=== PATIENT | female | born 1925 | race Caucasian/White ===

== ENCOUNTER 2016-10-27 19:48 | Inpatient (IN) ==
--- NOTE | 2016-10-27 20:12 | Emergency Department Note ---
Disposition Clinical Impression: Acute decompensated heart failure Hypotension Qualifiers: Hypotension type: idiopathic hypotension Qualified Code(s): I95.0 - Idiopathic hypotension Acute renal failure Qualifiers: Acute renal failure type: unspecified Qualified Code(s): N17.9 - Acute kidney failure, unspecified Disposition: Admitted As Inpatient Condition: Serious General Adult HPI - General Chief complaint: ED General Medical Stated complaint: lower ext edema Time Seen by Provider: 10/27/16 19:58 Nursing Notes Reviewed: Yes Vital Signs Reviewed: Yes - History of Present Illness HPI Narrative: 89-year-old female with a history of hypertension, hypothyroidism, hyperkalemia , A. fib on Pradaxa presents to the emergency department with lower extremity swelling, nausea and vomiting and generalized weakness. Patient's a poor historian and difficult to get much history from. She lives in a snf. She was recently seen at [facility] but does not think that she was admitted. She denies history of congestive heart failure. She reports just not feeling well. She has had some nausea and vomiting but no abdominal pain any time. She denies any fevers or diarrhea. She denies any chest pain. She does report some shortness of breath. Denies any headache, change in vision or focal weakness. - Related Data Home Medications Medication Instructions Recorded Confirmed Apixaban [Eliquis] 2.5 mg PO BID 03/30/16 04/01/16 Atenolol [Tenormin] 25 mg PO DAILY 03/30/16 04/01/16 Cholecalciferol (Vitamin D3) 10,000 unit PO WE 03/30/16 04/01/16 [Vitamin D3] LORazepam [Ativan] 0.5 mg PO DAILY 03/30/16 04/01/16 Levothyroxine [Synthroid] 150 mcg PO DAILY 03/30/16 04/01/16 Ropinirole HCl [Requip] 1.5 mg PO HS 03/30/16 04/01/16 Ciprofloxacin HCl [Cipro] 250 mg PO BID 04/01/16 04/01/16 Potassium Chloride [K-Tab ER] 20 meq PO DAILY 04/01/16 04/01/16 Previous Rx's Medication Instructions Recorded Furosemide [Lasix] 20 mg PO BID 30 Days 04/04/16 Allergies Allergy/AdvReac Type Severity Reaction Status Date / Time Iodinated Contrast Media - AdvReac Vomiting Verified 10/27/16 20:13 Oral and [Iodinated Contrast Media - IV Dye] All systems ED: reviewed and negative except as stated. Constitutional: Denies: fever, chills Cardiovascular: Reports: dyspnea on exertion. Denies: chest pain, syncope Respiratory: Denies: cough Gastrointestinal: Reports: vomiting. Denies: abdominal pain Genitourinary: Denies: urgency Musculoskeletal: Denies: back pain Neurological: Denies: headache, weakness, numbness Past Medical History - Past Medical History Medical history: Reports: atrial fibrillation, hypertension, thyroid disease Surgical history: Reports: cholecystectomy, hysterectomy Psychiatric history: Reports: no psych history - Social History Smoking Status: Never smoker Alcohol use: Reports: none Drug use: Reports: none Physical Exam General: Appears well, she is oriented, talkative and appropriate Cardiovascular: Irregular but rate is controlled, S1, S2. No murmurs, rubs or gallops. Respiratory: Breath sounds clear bilaterally. No wheezing, rales or rhonchi. No resp distress Abdomen: Soft, nontender. No guarding, rebound or rigidity. Normal bowel sounds throughout. Negative Thomas's. No palpable organomegaly Eyes: Pupils equally round and reactive to light, extraocular muscles intact, conjunctiva clear HENT: Normocephalic, no signs of head injury. No oral mucosal lesions. Moist mucous membranes Neuro: Cranial nerves intact. No motor or sensory deficit. Musculoskeletal: Bilateral lower extremity edema from the knees down. This is symmetric. There is no calf tenderness. There is some chronic changes of the skin but no signs of infection. Normal capillary refill. Skin: No lesions. No diaphoresis. Normal turgor. Normal color Psych: Appropriate Course Course Narrative: 89-year-old female with a history of hypertension, hyperlipidemia, atrial fibrillation presents to the emergency department with lower extremity swelling and generalized weakness. Family states she has become so weak she cannot even get around the house. She was recently seen by her doctor who has been increasing her Lasix due to the lower extremity swelling. Her EKG shows atrial fibrillation with no acute ischemic changes. Troponin is not elevated. Her chest x-ray shows bilateral pulmonary vascular congestion and clinically she appears to be in heart failure. Her BNP is quite elevated as well. We did do a CT scan of her abdomen which showed a large cystic lesion in the liver. Her liver enzymes are not elevated. Patient has been hypotensive asymptomatically since she has been here. She was given gentle fluid hydration without much improvement. She had a echocardiogram performed less than a year ago which showed an EF of 60%. My concern is that she is retaining more fluid and acutely having decompensated heart failure. She is also in renal failure with a creatinine of 3 with no history of this. Vital Signs Temperature 97.1 F L 10/27/16 19:58 Pulse Rate 88 10/27/16 19:58 Respiratory Rate 20 10/27/16 19:58 Blood Pressure 116/96 10/27/16 19:58 O2 Sat by Pulse Oximetry 99 10/27/16 19:58 Temperature 97.1 F L 10/27/16 19:58 Pulse Rate 86 10/28/16 06:00 Respiratory Rate 16 10/28/16 06:00 Blood Pressure 104/46 10/28/16 06:00 O2 Sat by Pulse Oximetry 94 L 10/28/16 06:00 Oxygen Delivery Oxygen Delivery Room Air Medical Decision Making - Lab Data Result diagrams: 10/28/16 04:40 10/28/16 04:40 Lab Results 10/27/16 10/27/16 10/27/16 Range/Units 20:35 20:35 20:35 WBC 5.3 (4.3-11.1) K/mcL RBC 4.11 (3.82-4.97) M/mcL Hgb 12.2 (11.5-15.4) g/dL Hct 36.1 (35.3-44.9) % MCV 87.8 (83.0-100.0) fL MCH 29.7 (28.0-33.3) pg MCHC 33.8 (31.6-35.5) g/dL RDW 16.9 H (11.5-14.5) % Plt Count 90 L (140-400) K/mcL MPV 13.1 H (9.4-12.4) fL Immature Gran % 0.4 (0-4) % Seg Neutrophils % 72.4 % Lymphocytes % 17.4 % Monocytes % 8.1 % Eosinophils % 1.5 % Basophils % 0.2 % Neutrophils # 3.8 (1.6-8.9) K/mcL Lymphocytes # 0.9 (0.6-4.6) K/mcL Monocytes # 0.4 (0.0-1.3) K/mcL Eosinophils # 0.1 (0.0-0.6) K/mcL Basophils # 0.0 (0.0-0.2) K/mcL Nucleated RBCs/100 WBC 1.1 H (0) /100 WBC D-Dimer (0-500) ng/mLFEU Sodium (136-145) mEq/L Potassium (3.5-4.5) mEq/L Chloride (98-109) mEq/L Carbon Dioxide (19-29) mEq/L BUN (7-20) mg/dL Creatinine (0.57-1.11) mg/dL Est GFR ( Amer) (> 60) Est GFR (Non-Af Amer) (> 60) BUN/Creatinine Ratio (6-26) Glucose (70-99) mg/dL Calculated Osmolality (280-300) Calcium (8.6-10.8) mg/dL Total Bilirubin 0.6 (0.2-1.2) mg/dL Direct Bilirubin 0.4 (0.0-0.5) mg/dL Indirect Bilirubin 0.2 (0.0-1.2) mg/dL AST 66 H (5-34) Units/L ALT 53 (0-55) Units/L Alkaline Phosphatase 162 H (38-126) Units/L Troponin I (0-0.03) ng/mL B-Natriuretic Peptide 684 H (0-100) pg/mL Serum Total Protein 5.6 L (6.0-8.3) g/dL Albumin 2.0 L (3.5-5.0) g/dL Globulin 3.6 H (2.4-3.5) g/dL Albumin/Globulin Ratio 0.6 L (1.1-2.2) Lipase 168 H (8-78) Units/L Urine Color (Yellow) Urine Clarity (Clear) Urine pH (5.0-8.0) pH Units Ur Specific Hurst (1.010-1.025) Urine Protein (Neg-Trace) mg/dL Urine Glucose (UA) (Normal) mg/dL Urine Ketones (Negative) mg/dL Urine Blood (Negative) Urine Nitrite (Negative) Urine Bilirubin (Negative) Urine Urobilinogen (Normal) mg/dL Ur Leukocyte Esterase (Negative) Urine Microscopic RBC (0-3) per hpf Urine Microscopic WBC (0-3) per hpf Ur Squamous Epith Cells (None-Few) per lpf Urine Bacteria (None-Few) per hpf Hyaline Casts (None-Few) per lpf Ur Culture Indicated? (NO) 10/27/16 10/27/16 10/27/16 Range/Units 20:35 20:35 20:46 WBC (4.3-11.1) K/mcL RBC (3.82-4.97) M/mcL Hgb (11.5-15.4) g/dL Hct (35.3-44.9) % MCV (83.0-100.0) fL MCH (28.0-33.3) pg MCHC (31.6-35.5) g/dL RDW (11.5-14.5) % Plt Count (140-400) K/mcL MPV (9.4-12.4) fL Immature Gran % (0-4) % Seg Neutrophils % % Lymphocytes % % Monocytes % % Eosinophils % % Basophils % % Neutrophils # (1.6-8.9) K/mcL Lymphocytes # (0.6-4.6) K/mcL Monocytes # (0.0-1.3) K/mcL Eosinophils # (0.0-0.6) K/mcL Basophils # (0.0-0.2) K/mcL Nucleated RBCs/100 WBC (0) /100 WBC D-Dimer (0-500) ng/mLFEU Sodium 136 (136-145) mEq/L Potassium 5.7 H (3.5-4.5) mEq/L Chloride 103 (98-109) mEq/L Carbon Dioxide 22 (19-29) mEq/L BUN 95 H (7-20) mg/dL Creatinine 3.15 H (0.57-1.11) mg/dL Est GFR ( Amer) 17 L (> 60) Est GFR (Non-Af Amer) 14 L (> 60) BUN/Creatinine Ratio 30 H (6-26) Glucose 69 L (70-99) mg/dL Calculated Osmolality 310 H (280-300) Calcium 8.8 (8.6-10.8) mg/dL Total Bilirubin (0.2-1.2) mg/dL Direct Bilirubin (0.0-0.5) mg/dL Indirect Bilirubin (0.0-1.2) mg/dL AST (5-34) Units/L ALT (0-55) Units/L Alkaline Phosphatase (38-126) Units/L Troponin I 0.00 (0-0.03) ng/mL B-Natriuretic Peptide (0-100) pg/mL Serum Total Protein (6.0-8.3) g/dL Albumin (3.5-5.0) g/dL Globulin (2.4-3.5) g/dL Albumin/Globulin Ratio (1.1-2.2) Lipase (8-78) Units/L Urine Color Yellow (Yellow) Urine Clarity Cloudy A (Clear) Urine pH 5.0 (5.0-8.0) pH Units Ur Specific Hurst 1.012 (1.010-1.025) Urine Protein Trace (Neg-Trace) mg/dL Urine Glucose (UA) Normal (Normal) mg/dL Urine Ketones Negative (Negative) mg/dL Urine Blood Negative (Negative) Urine Nitrite Negative (Negative) Urine Bilirubin Negative (Negative) Urine Urobilinogen Normal (Normal) mg/dL Ur Leukocyte Esterase Negative (Negative) Urine Microscopic RBC 3-5 H (0-3) per hpf Urine Microscopic WBC 3-5 H (0-3) per hpf Ur Squamous Epith Cells Many H (None-Few) per lpf Urine Bacteria None Seen (None-Few) per hpf Hyaline Casts None Seen (None-Few) per lpf Ur Culture Indicated? NO (NO) 10/28/16 Range/Units 01:41 WBC (4.3-11.1) K/mcL RBC (3.82-4.97) M/mcL Hgb (11.5-15.4) g/dL Hct (35.3-44.9) % MCV (83.0-100.0) fL MCH (28.0-33.3) pg MCHC (31.6-35.5) g/dL RDW (11.5-14.5) % Plt Count (140-400) K/mcL MPV (9.4-12.4) fL Immature Gran % (0-4) % Seg Neutrophils % % Lymphocytes % % Monocytes % % Eosinophils % % Basophils % % Neutrophils # (1.6-8.9) K/mcL Lymphocytes # (0.6-4.6) K/mcL Monocytes # (0.0-1.3) K/mcL Eosinophils # (0.0-0.6) K/mcL Basophils # (0.0-0.2) K/mcL Nucleated RBCs/100 WBC (0) /100 WBC D-Dimer 226 (0-500) ng/mLFEU Sodium (136-145) mEq/L Potassium (3.5-4.5) mEq/L Chloride (98-109) mEq/L Carbon Dioxide (19-29) mEq/L BUN (7-20) mg/dL Creatinine (0.57-1.11) mg/dL Est GFR ( Amer) (> 60) Est GFR (Non-Af Amer) (> 60) BUN/Creatinine Ratio (6-26) Glucose (70-99) mg/dL Calculated Osmolality (280-300) Calcium (8.6-10.8) mg/dL Total Bilirubin (0.2-1.2) mg/dL Direct Bilirubin (0.0-0.5) mg/dL Indirect Bilirubin (0.0-1.2) mg/dL AST (5-34) Units/L ALT (0-55) Units/L Alkaline Phosphatase (38-126) Units/L Troponin I (0-0.03) ng/mL B-Natriuretic Peptide (0-100) pg/mL Serum Total Protein (6.0-8.3) g/dL Albumin (3.5-5.0) g/dL Globulin (2.4-3.5) g/dL Albumin/Globulin Ratio (1.1-2.2) Lipase (8-78) Units/L Urine Color (Yellow) Urine Clarity (Clear) Urine pH (5.0-8.0) pH Units Ur Specific Hurst (1.010-1.025) Urine Protein (Neg-Trace) mg/dL Urine Glucose (UA) (Normal) mg/dL Urine Ketones (Negative) mg/dL Urine Blood (Negative) Urine Nitrite (Negative) Urine Bilirubin (Negative) Urine Urobilinogen (Normal) mg/dL Ur Leukocyte Esterase (Negative) Urine Microscopic RBC (0-3) per hpf Urine Microscopic WBC (0-3) per hpf Ur Squamous Epith Cells (None-Few) per lpf Urine Bacteria (None-Few) per hpf Hyaline Casts (None-Few) per lpf Ur Culture Indicated? (NO) Critical Care Time Critical Care Time: Yes Total Critical Care Time: 35 Attestation: Hypotension, iv fluid bolus recessitation required; Attestation Statement - Attestation Attestation: Dr Cantor note: Pt seen in conjunction w/ Resident Dr Binh Marte; Please see his charting for complete documentation; I agree w/ pt's treatment and disposition and spent face to face time with the pt; patient has no chest pain or abdominal pain at the time of admission. She was placed on Lasix and a fluid restriction orally. Her kidney function has rapidly deteriorated along with her dehydration which is obvious from her lab work. Additionally now wrinkly in her lower extremities is clinically indicative of recent fluid loss. Blood pressures in the rise in the 70s and when rechecked was 87 systolic. She is not symptomatic. She has only had 1 liter of fluids in the first 4 hours and her ER stay. Additional fluids are indicated for her obvious dehydration and additional intervention will be dictated by her response to additional fluids. Afebrile, clinically her BP is not from bactermia/infection @ this time; Cystic structure noted on her CT scan as well. Patient's had a gradual deterioration in her general medical condition over the last many weeks. [id number] and son at bedside are aware of her poor prognosis and complicated situation at this time. Admitted to the hospital in fair condition. I , despite above charting, and much less suspicious for "acute decompensated heart failure" and would recommend aggresive fluid infusion over the next few hours and guage symptoms/further treatment based on her response; pt present prior to admission/waiting for admission bed for many hours and has not worsened; obvious/known very significant rise in her uremia over just a short period of days along w/ fluid restriction and aggresive lasix treatment;
[2016-10-27 20:51] LABS: Basophils % 0.2 %; Eosinophils # 0.1 K/mcL (0.0-0.6); Eosinophils % 1.5 %; Hematocrit 36.1 % (35.3-44.9); Hemoglobin 12.2 g/dL (11.5-15.4); Immature Granulocytes % 0.4 % (0-4); Lymphocytes # 0.9 K/mcL (0.6-4.6); Lymphocytes % 17.4 %; Mean Corpuscular HGB Conc 33.8 g/dL (31.6-35.5); Mean Corpuscular Hemoglobin 29.7 pg (28.0-33.3); Mean Corpuscular Volume 87.8 fL (83.0-100.0); Mean Platelet Volume 13.1 fL (9.4-12.4); Monocytes # 0.4 K/mcL (0.0-1.3); Monocytes % 8.1 %; Neutrophils # 3.8 K/mcL (1.6-8.9); Nucleated Red Blood Cells 1.1 /100 WBC (0); Red Blood Count 4.11 M/mcL (3.82-4.97); Red Cell Distribution Width 16.9 % (11.5-14.5); Segmented Neutrophils % 72.4 %
[2016-10-27 20:53] LABS: Platelet Count 90 K/mcL (140-400)
[2016-10-27 20:56] LABS: Bilirubin,Urine Negative (Negative); Blood,Urine Negative (Negative); Clarity,Urine Cloudy (Clear); Color,Urine Yellow (Yellow); Glucose,Urine (UA) Normal (Normal); Ketones,Urine Negative (Negative); Leukocyte Esterase,Urine Negative (Negative); Nitrite,Urine Negative (Negative); Protein,Urine Trace mg/dL (Neg-Trace); Specific Gravity,Urine 1.012 (1.010-1.025); Urobilinogen,Urine Normal (Normal)
[2016-10-27 20:58] LABS: Bacteria,Urine None Seen per hpf (None-Few); Hyaline Casts,Urine None Seen per lpf (None-Few); Squamous Epithelial Cell,Urine Many per lpf (None-Few)
[2016-10-27 21:00] LABS: Calcium 8.8 mg/dL (8.6-10.8); Potassium 5.7 mEq/L (3.5-4.5)
[2016-10-27 21:03] LABS: Albumin/Globulin Ratio 0.6 (1.1-2.2); Bilirubin,Direct 0.4 mg/dL (0.0-0.5); Bilirubin,Indirect 0.2 mg/dL (0.0-1.2); Bilirubin,Total 0.6 mg/dL (0.2-1.2); Globulin 3.6 g/dL (2.4-3.5); Total Protein 5.6 g/dL (6.0-8.3)
[2016-10-27] MEDS ORDERED: 0.9 % Sodium Chloride 1,000 ML IVC ONE (22:57)
[2016-10-27] MEDS ORDERED: 0.9 % Sodium Chloride 1,000 ML IV ONE (23:58)
[2016-10-28] MEDS ORDERED: Naloxone 0.4 MG/ML INJ IVP PRN (02:48)
[2016-10-28] MEDS ORDERED: 0.9 % Sodium Chloride 500 ML IVC ONE ×2 (02:51→02:52)
--- NOTE | 2016-10-28 02:53 | Internal Med History&Physical ---
Date of Encounter: 10/28/16 Time of Encounter: 00:30 Assessment and Plan (1) Hypotension Current visit: Yes Status: Acute Etiology is uncertain at this time. Volume status is difficult to assess in this patient. Could be cardiogenic versus secondary to volume depletion versus infection/sepsis. Pt was given slow IV fluid infusion in the ER, without significant improvement of the BP. Quick bedside ultrasound scan in the ER did not demonstrate pericardial effusion. IVC is not collapsed. CXR reported no infiltrate. UA is negative. Obtain blood cultures, lactate, CRP. Start dopamine infusion (pt had no central line placed in the ER). Emperically start vancomycin and zosyn Qualifiers: Hypotension type: idiopathic hypotension Qualified Code(s): I95.0 - Idiopathic hypotension (2) Acute renal failure Current visit: Yes Status: Acute Likely secondary to volume depletion/diuretics versus cardiogenic shock. Will obtain renal ultrasound. Nephrology consult. Qualifiers: Acute renal failure type: unspecified Qualified Code(s): N17.9 - Acute kidney failure, unspecified (3) Hyperkalemia Current visit: Yes Status: Acute Likely secondary to NIYA/ARF. Treat with calcium gluconate; sodium bicarbonate and kayexalate. Monitor renal function. (4) Liver lesion Current visit: Yes Status: Acute 6.3 cm near fluid density lesion centered in the caudate lobe of the liver, most likely cyst. Will obtain ultrasound scan of the liver to evaluate this further (5) Diverticulosis Current visit: Yes Status: Chronic Qualifiers: Diverticulosis site: diverticulosis of large intestine Diverticulosis bleeding: diverticulosis without bleeding Qualified Code(s): K57.30 - Diverticulosis of large intestine without perforation or abscess without bleeding (6) Constipation Current visit: Yes Status: Acute Will treat with laxatives Qualifiers: Constipation type: unspecified constipation type Qualified Code(s): K59.00 - Constipation, unspecified (7) Pleural effusion Current visit: Yes Status: Acute (8) Anasarca Current visit: Yes Status: Acute Possibly due to combination of CHF and hypoalbuminemia. (9) Atrial fibrillation Current visit: Yes Status: Chronic Rate controlled. On pradaxa. Monitor CBC Qualifiers: Atrial fibrillation type: chronic Qualified Code(s): I48.2 - Chronic atrial fibrillation (10) Hypothyroidism Current visit: Yes Status: Chronic Continue Synthroid. Will check TSH level. Qualifiers: Hypothyroidism type: unspecified Qualified Code(s): E03.9 - Hypothyroidism , unspecified (11) Hypoalbuminemia Current visit: Yes Status: Acute (12) Elevated lipase Current visit: Yes Status: Acute CT scan shows no evidence of pancreatitis (13) DVT prophylaxis Current visit: Yes Status: Acute Pt is on pradaxa Internal Medicine - H&P: HPI Admitted From: Emergency Dept Plans for Post Hospital Care: Transfer Custodial Facility History of present illness: Ms. Linton is a 89 year old female with a history of Atrial fibrillation - examination with apixaban, hypertension, hypothyroidism was apparently sent from the longterm with generalized weakness. Patient is not able to give many details she reports that her son thought she was not doing well and wanted her to go to the hospital. She apparently has history of congestive heart failure and dose of Lasix was increased recently. She reports that her leg swelling has gone down significantly. Reports occasional shortness of breath. Denies chest pain. No significant cough or expectoration. Denies abdominal pain dysuria, hematuria. She was evaluated in the emergency department and was noted to have acute kidney injury, hyperkalemia. She had significant hypotension. She was given IV fluids, without significant improvement in BP. She is admitted to the hospitalist for further management. Past Med Surg Social Fam HX - Past Medical History Medical history: atrial fibrillation, hypertension, thyroid disease Psychiatric history: no psych history - Past Surgical History Surgical History: cholecystectomy, hysterectomy - Social History Smoking Status: Never smoker Smokeless Tobacco Status: No Alcohol use: none Drug use: none - Family History Mother Living Status: Hx Family Cardiac Disorders: Yes Father Living Status: Hx Family Cardiac Disorders: Yes Hx Family Respiratory Disorders: Yes Internal Medicine - H&P: Meds Apixaban [Eliquis] 2.5 mg PO BID 03/30/16 [History] Atenolol [Tenormin] 25 mg PO DAILY 03/30/16 [History] Cholecalciferol (Vitamin D3) [Vitamin D3] 10,000 unit PO WE 03/30/16 [History] LORazepam [Ativan] 0.5 mg PO DAILY 03/30/16 [History] Levothyroxine [Synthroid] 150 mcg PO DAILY 03/30/16 [History] Ropinirole HCl [Requip] 1.5 mg PO HS 03/30/16 [History] Ciprofloxacin HCl [Cipro] 250 mg PO BID 04/01/16 [History] Potassium Chloride [K-Tab ER] 20 meq PO DAILY 04/01/16 [History] Furosemide [Lasix] 20 mg PO BID 30 Days 04/04/16 [Rx] Allergies Iodinated Contrast Media - Oral and [Iodinated Contrast Media - IV Dye] Adverse Reaction (Verified 10/27/16 20:13) Vomiting All Systems PM: A 10-system review of systems was performed and is negative for pertinent findings except as documented above in the HPI. - Constitutional Vitals: Temp Pulse Resp BP Pulse Ox 97.1 F L 75 20 69/37 97 10/27/16 19:58 10/28/16 01:15 10/28/16 01:56 10/28/16 01:56 10/28/16 01:15 Exam: General: Not in acute distress at the time of my evaluation HEENT: Oral mucosa is dry. No conjunctival palor or scleral icterus Neck: No obvious neck swellings Lungs: Clear to auscultation Cardiac: Irregular rhythm. No significant murmurs Abdomen: Distended, non tender. Bowel sounds present Genitourinary: No fair catheter Neurological: Alert and able to answer questions, some confusion. No gross localizing deficits Psych: Not aggressive or agitated Extremities: B/L leg edema present Skin: No generalized rash Internal Med - H&P Results - Labs CBC & Chem 7: 10/28/16 04:40 10/28/16 04:40 - EKG Data -: EKG Interpreted by Myself - EKG Data EKG comments: Atrial fibrillation, rate controlled. Low voltage complexes 10/28/16 03:46 - Impressions ITS Impressions Chest X-Ray 10/27/16 20:09 IMPRESSION: 1. Findings are suggestive of bilateral pleural effusion and partial atelectasis of the lower lobes. Underlying pneumonia is not excluded. D/ / Dario Palumbo MD / Dario Palumbo MD Interpreting Provider: Dario Palumbo MD Abdomen/Pelvis CT 10/27/16 20:28 IMPRESSION: Moderate right and small left layering pleural effusions. Passive atelectasis and partial right lower lobe collapse. 6.3 cm near fluid density lesion centered in the caudate lobe of the liver, most likely a cyst. This could be confirmed with ultrasound examination. Colonic diverticulosis. No findings of diverticulitis. Significant rectal stool burden. Anasarca. D/ / Mike Tinoco MD / Mike Tinoco MD Interpreting Provider: Mike Tinoco MD
[2016-10-28] MEDS ORDERED: Calcium Gluconate 1,000 MG in D5% in Water 100 ML IVPB ONE (02:55)
[2016-10-28] MEDS ORDERED: Piperacillin/Tazobactam 2.25 GM in D5% in Water (Mini-Bag+) 100 ML IVPB SCH (03:25)
[2016-10-28] MEDS ORDERED: Vancomycin 1,000 MG in D5% in Water 250 ML IVPB SCH (03:25)
[2016-10-28] MEDS ORDERED: Vancomycin 1,000 MG in D5% in Water 250 ML IVPB ONE (04:00)
[2016-10-28 04:58] LABS: Eosinophils % 0.7 %; Immature Granulocytes % 0.6 % (0-4); Lymphocytes # 0.8 K/mcL (0.6-4.6); Lymphocytes % 15.6 %; Mean Corpuscular HGB Conc 33.7 g/dL (31.6-35.5); Mean Corpuscular Hemoglobin 29.7 pg (28.0-33.3); Mean Corpuscular Volume 88.2 fL (83.0-100.0); Mean Platelet Volume 13.2 fL (9.4-12.4); Monocytes # 0.5 K/mcL (0.0-1.3); Monocytes % 8.4 %; Nucleated Red Blood Cells 0.6 /100 WBC (0); Segmented Neutrophils % 74.7 %
[2016-10-28 04:59] LABS: Hemoglobin 10.1 g/dL (11.5-15.4); Platelet Count 80 K/mcL (140-400)
[2016-10-28 05:19] LABS: Calcium 8.3 mg/dL (8.6-10.8); Potassium 5.2 mEq/L (3.5-4.5)
[2016-10-28] MEDS ORDERED: 0.9 % Sodium Chloride 300 ML IVC ONE (05:27)
[2016-10-28] MEDS: Piperacillin/Tazobactam 3.375 GM in D5% in Water (Mini-Bag+) 100 ML IVPB SCH ×2 (06:30→17:04)
--- NOTE | 2016-10-28 08:10 | Pulmonology Consult Note ---
<González Alvarado - Last Filed: 10/28/16 16:32> Date of Encounter: 10/28/16 Time of Encounter: 08:04 Assessment and Plan (1) Cardiorenal syndrome with renal failure Current Visit: Yes Status: Suspected Suspected cardiorenal syndrome Hypotension requiring vasopressor support with dopamine suspected to be 2/2 acute decompensated HF with anasarca and acute renal failure. CXR pulm edema vs atelectasis. CT abd/pel: Moderate right and small left layering pleural effusions with passive atelectasis and partial right lower lobe collapse. GFR 15, last admission in march 2016 GFR was >60 Scr 2.99, last admission in march 2016 was 0.66 Trop: 0.00, 0.07 Elevated trop likely 2/2 ARF Nephro consulted. Recommend gentle fluid hydration. Appreciate their recommendation. Echo pending (2) Hyperphosphatemia Current Visit: Yes Status: Acute most likely 2/2 acute renal failure gentle diuresis NS @75 ml/hr monitor phosphorus (3) Anasarca Current Visit: Yes Status: Acute Pitting in LE. Appreciated in head, abdomen as well. Albumin found to be low @2.0 PT/INR 68.3/6.0 Hepatic lesion found on abd/pelvis CT Liver U/S pending Echo pending Will start 5% albumin for intravascular support. 50gm Albumin ordered Possibly d/t liver dysfunction with associated heart failure. (4) Elevated lipase Current Visit: Yes Status: Acute Pt. continues to have nausea and vomiting Lipase of 168 Abd/pelvis CT did not reveal inflammation in or around pancreas Liver U/S pending (5) Hyperkalemia Current Visit: Yes Status: Chronic Pt. has history of hyperkalemia. Is on Potassium supplements at home. Likely worsened 2/2 ARF K+ 5.7 on admission Treated with calcium gluconate and kayexelate K+ this am was 5.2 Will continue to monitor (6) Hypoalbuminemia Current Visit: Yes Status: Acute Albumin 2.0 this am. Possibly 2/2 hepatic hypoperfusion vs large liver lesion seen on CT. Start 5% Albumin, 50gms total to be given. Liver u/s pending revealuate in AM (7) Hypotension Current Visit: Yes Status: Acute Possibly 2/2 hypovolemia Pt. history of 2-3 weeks nausea and vomiting BP on admission was 60's/50's BUN: 105, calculated osmolality 316. BUN/CR ratio: 35: suggests pre-renal cause Received 3L NS without improvement in ED. Dopamine started at 5mcg/kg. BP's now 90's/50's Continue Dopamine for pressure support Qualifiers: Hypotension type: idiopathic hypotension Qualified Code(s): I95.0 - Idiopathic hypotension (8) Liver lesion Current Visit: Yes Status: Acute 6.3cm lesion in liver. Liver u/s pending. AST/ALT/Alk Phos: 66/53/163 PT/INR: 68.3/6.0 Abdomen/Pelvis CT 10/27/16 20:28 IMPRESSION: Moderate right and small left layering pleural effusions. Passive atelectasis and partial right lower lobe collapse. 6.3 cm near fluid density lesion centered in the caudate lobe of the liver, most likely a cyst. This could be confirmed with ultrasound examination. Colonic diverticulosis. No findings of diverticulitis. Significant rectal stool burden. Anasarca. D/ / Mike Tinoco MD / Mike Tinoco MD Interpreting Provider: Mike Tinoco MD (9) Pleural effusion Current Visit: Yes Status: Acute B/L lower lobe pleural effusions seen on CXT and CT abd/pelvis Possibly 2/2 heart failure vs PNA Empiric antibiotics started: Vancomycin and Zosyn Day 1 Echo pending. Gentle fluid hydration of NS@75ml/min repeat cxr in am (10) Atrial fibrillation Current Visit: Yes Status: Chronic History of Afib anticoagulated at home on Eliquis. We are currently holding Eliquis as pt. may require invasive emergent procedures. Will anticoagulate with Heparin subq. HR is currently irregularly irregular with Rate 90-110 Will monitor rate and add rate controlling BB if HR increases dramatically Qualifiers: Atrial fibrillation type: chronic Qualified Code(s): I48.2 - Chronic atrial fibrillation (11) Hypothyroidism Current Visit: Yes Status: Chronic Stable TSH: 1.034 Home synthroid dose is 150mcg. Will convert to 50% dose for IV as patient is vomiting. Qualifiers: Hypothyroidism type: unspecified Qualified Code(s): E03.9 - Hypothyroidism , unspecified (12) DVT prophylaxis Current Visit: Yes Status: Acute Pt. takes eliquis at home Will hold for now as she may require central line or other invasive procedures will start Heparin subq 5000 units TID History of Present Illness Consult date: 10/28/16 Requesting physician: Howie Beckham Reason for consult: other (hypotension) Chief complaint: LE edema, N/V, Generalized weakness History of present illness: Ms. Linton is an 89 yo female who presented to the ED with chief complaint of generalized weakness, nausea/vomiting, and bilateral LE edema. She has a medical history significant for HTN, hypothyroid, hyperkalemia, Afib (eliquis). She lives in a fci in [place]. She states she has been feeling more tired/fatigued for the last few weeks. She feels very tired and fatigues whenever exerting herself and must sit down for a while to get her strength back. She has also been vomiting after eating her meals and taking her meds over the past 2-3 weeks. She has also noticed new onset B/L LE swelling. She has previously had LE swelling in February 2016 when she was admitted for hyponatremia. She was found to be hypotensive upon admission and placed in the ICU. She was given 3L NS and started on Dopamine 5mcg/kg for pressure support. She was also started empirically on Vanc and Zosyn in the ED from CXR which revealed possible PNA. She was also found to have hyperkalemia and treated with calcium gluconate and kayexelate as well with improvement. She denies any pain/nausea/vomiting/chest pain/sob/abd pain at this time. Past Med Surg Social Fam HX - Past Medical History Medical history: atrial fibrillation, hypertension, thyroid disease Psychiatric history: no psych history - Past Surgical History Surgical History: cholecystectomy, hysterectomy - Social History Smoking Status: Never smoker Smokeless Tobacco Status: No Alcohol use: none Drug use: none - Family History Mother Adopted: No Living Status: Age at : 79 Cause of : CVA Hx Family Cardiac Disorders: Yes Father Adopted: No Age: 85 Living Status: Cause of : atherosclerosis Hx Family Cardiac Disorders: Yes Hx Family Respiratory Disorders: Yes Medications and Allergies Apixaban [Eliquis] 2.5 mg PO BID 03/30/16 [History] Levothyroxine [Synthroid] 150 mcg PO DAILY 03/30/16 [History] Ropinirole HCl [Requip] 1.5 mg PO HS 03/30/16 [History] Potassium Chloride [K-Tab ER] 20 meq PO DAILY 04/01/16 [History] Furosemide [Lasix] 20 mg PO BID PRN 10/28/16 [History] Allergies Iodinated Contrast Media - Oral and [Iodinated Contrast Media - IV Dye] Adverse Reaction (Verified 10/27/16 20:13) Vomiting All Systems: A 10-system review of systems was performed and is negative for pertinent findings except as documented above in the HPI. - Constitutional Constitutional: as per HPI - Cardiovascular Cardiovascular: dyspnea on exertion, edema, leg edema, no chest pain, no chest pain at rest, no chest pain with activity - Respiratory Respiratory: dyspnea, dyspnea on exertion, no cough, no hemoptysis, no wheezing , no stridor, no chest congestion - Gastrointestinal Gastrointestinal: nausea, vomiting, no abdominal pain, no cramping, no diarrhea , no fecal incontinence, no hematemesis, no melena - Musculoskeletal Musculoskeletal: weakness - Neurological Neurological: restless legs, no confusion, no convulsions, no dizziness, no focal weakness, no numbness, no paresthesias, no syncope - Endocrine Endocrine: fatigue Physical Examination Vital Signs: Vital Signs, Last 4 Hours Temp Pulse Resp BP Pulse Ox 10/28/16 07:52 98 10/28/16 07:00 97.6 F 98 18 100/56 93 L 10/28/16 06:30 85 18 99/69 93 L 10/28/16 06:00 86 16 104/46 94 L 10/28/16 05:30 80 16 101/64 94 L 10/28/16 05:00 75 16 67/45 100 General appearance: lethargic ENT: oropharynx dry Effort: normal Inspection: normal Auscultation: bilateral: clear Cardiovascular: irregular rhythm (afib) Gastrointestinal: normoactive bowel sounds, tender Integumentary: normal Extremities: no cyanosis, edema, anasarca Musculoskeletal: no deformities normal mental status mood appropriate, affect normal Results - Laboratory Findings CBC and BMP: 10/28/16 04:40 10/28/16 04:40 PT/INR, D-dimer D-Dimer 226 ng/mLFEU (0-500) 10/28/16 01:41 Abnormal lab findings: Abnormal lab results RBC 3.40 M/mcL (3.82-4.97) L 10/28/16 04:40 Hgb 10.1 g/dL (11.5-15.4) L D 10/28/16 04:40 Hct 30.0 % (35.3-44.9) L 10/28/16 04:40 RDW 17.0 % (11.5-14.5) H 10/28/16 04:40 Plt Count 80 K/mcL (140-400) L 10/28/16 04:40 MPV 13.2 fL (9.4-12.4) H 10/28/16 04:40 Nucleated RBCs/100 WBC 0.6 /100 WBC (0) H 10/28/16 04:40 Potassium 5.2 mEq/L (3.5-4.5) H 10/28/16 04:40 BUN 105 mg/dL (7-20) H 10/28/16 04:40 Creatinine 2.99 mg/dL (0.57-1.11) H 10/28/16 04:40 Est GFR ( Amer) 18 (> 60) L 10/28/16 04:40 Est GFR (Non-Af Amer) 15 (> 60) L 10/28/16 04:40 BUN/Creatinine Ratio 35 (6-26) H 10/28/16 04:40 Calculated Osmolality 316 (280-300) H 10/28/16 04:40 Calcium 8.3 mg/dL (8.6-10.8) L 10/28/16 04:40 AST 66 Units/L (5-34) H 10/27/16 20:35 Alkaline Phosphatase 162 Units/L (38-126) H 10/27/16 20:35 C-Reactive Protein 21 mg/L (Less than 5) H 10/28/16 04:40 B-Natriuretic Peptide 684 pg/mL (0-100) H 10/27/16 20:35 Serum Total Protein 5.6 g/dL (6.0-8.3) L 10/27/16 20:35 Albumin 2.0 g/dL (3.5-5.0) L 10/27/16 20:35 Globulin 3.6 g/dL (2.4-3.5) H 10/27/16 20:35 Albumin/Globulin Ratio 0.6 (1.1-2.2) L 10/27/16 20:35 Lipase 168 Units/L (8-78) H 10/27/16 20:35 Urine Clarity Cloudy (Clear) A 10/27/16 20:46 Urine Microscopic RBC 3-5 per hpf (0-3) H 10/27/16 20:46 Urine Microscopic WBC 3-5 per hpf (0-3) H 10/27/16 20:46 Ur Squamous Epith Cells Many per lpf (None-Few) H 10/27/16 20:46 - Clinical Findings Intake & Output: Intake & Output 10/27/16 10/28/16 10/28/16 23:59 07:59 15:59 Intake Total 2160 / 2160 Balance 2160 / 2160 Weight 76.43 kg Consult Discharge Plan - Plan Referrals: Laurent Conrad MD [Primary Care Provider] - <Mohinder Ballesteros - Last Filed: 10/28/16 21:29> Date of Encounter: 10/28/16 All Systems: A 10-system review of systems was performed and is negative for pertinent findings except as documented above in the HPI. Physical Examination Vital Signs: Vital Signs, Last 4 Hours Temp Pulse Resp BP Pulse Ox 10/28/16 20:44 97.5 F L 10/28/16 20:00 102 18 96/63 99 10/28/16 19:00 89/42 10/28/16 18:00 101 20 89/54 96 Results - Laboratory Findings CBC and BMP: 10/28/16 04:40 10/28/16 04:40 PT/INR, D-dimer PT 68.3 Seconds (9.4-12.1) H* 10/28/16 11:30 D-Dimer 226 ng/mLFEU (0-500) 10/28/16 01:41 Abnormal lab findings: Abnormal lab results RBC 3.40 M/mcL (3.82-4.97) L 10/28/16 04:40 Hgb 10.1 g/dL (11.5-15.4) L D 10/28/16 04:40 Hct 30.0 % (35.3-44.9) L 10/28/16 04:40 RDW 17.0 % (11.5-14.5) H 10/28/16 04:40 Plt Count 80 K/mcL (140-400) L 10/28/16 04:40 MPV 13.2 fL (9.4-12.4) H 10/28/16 04:40 Nucleated RBCs/100 WBC 0.6 /100 WBC (0) H 10/28/16 04:40 PT 68.3 Seconds (9.4-12.1) H* 10/28/16 11:30 INR 6.0 H* 10/28/16 11:30 Potassium 5.2 mEq/L (3.5-4.5) H 10/28/16 04:40 BUN 105 mg/dL (7-20) H 10/28/16 04:40 Creatinine 2.99 mg/dL (0.57-1.11) H 10/28/16 04:40 Est GFR ( Amer) 18 (> 60) L 10/28/16 04:40 Est GFR (Non-Af Amer) 15 (> 60) L 10/28/16 04:40 BUN/Creatinine Ratio 35 (6-26) H 10/28/16 04:40 Calculated Osmolality 316 (280-300) H 10/28/16 04:40 Calcium 8.3 mg/dL (8.6-10.8) L 10/28/16 04:40 Phosphorus 6.7 mg/dL (2.3-4.7) H 10/28/16 04:40 AST 66 Units/L (5-34) H 10/27/16 20:35 Alkaline Phosphatase 162 Units/L (38-126) H 10/27/16 20:35 Troponin I 0.09 ng/mL (0-0.03) H* 10/28/16 17:13 C-Reactive Protein 21 mg/L (Less than 5) H 10/28/16 04:40 B-Natriuretic Peptide 684 pg/mL (0-100) H 10/27/16 20:35 Serum Total Protein 5.6 g/dL (6.0-8.3) L 10/27/16 20:35 Albumin 2.0 g/dL (3.5-5.0) L 10/27/16 20:35 Globulin 3.6 g/dL (2.4-3.5) H 10/27/16 20:35 Albumin/Globulin Ratio 0.6 (1.1-2.2) L 10/27/16 20:35 Lipase 168 Units/L (8-78) H 10/27/16 20:35 Vitamin B12 1542 pg/mL (213-816) H 10/28/16 09:10 Urine Clarity Cloudy (Clear) A 10/27/16 20:46 Urine Microscopic RBC 3-5 per hpf (0-3) H 10/27/16 20:46 Urine Microscopic WBC 3-5 per hpf (0-3) H 10/27/16 20:46 Ur Squamous Epith Cells Many per lpf (None-Few) H 10/27/16 20:46 - Clinical Findings Intake & Output: Intake & Output 10/28/16 10/28/16 10/28/16 07:59 15:59 23:59 Intake Total 2160 / 2160 640 / 640 500 / 500 Output Total 595 / 595 150 / 150 Balance 2160 / 2160 45 / 45 350 / 350 Weight 76.43 kg 80.739 kg - Attending Attestation I examined this patient and my medical decision-making was reviewed with the ELECTRIC ORGAN CHECKER/PA/Advanced Practice Nurse/Resident Physician. I agree with the documented findings, disposition and treatment plan as described except to the extent set forth below. Patient seen and examined. Labs, radiology, chart personally reviewed. 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 Cardiovascular: unstable with shock that she needs to have vasopressor (Dopamine ) I did a bedside US and I feel her atriums are dilated and she A. fib. It is not clear at this time what type of shock she has, but could be multifactorial. I feel with her IV collapsing there is evidence of intravascular volume depletion. Patient has received fluid and I hope she will not get worse. Echo has been done and will consider cardiology consultation. GI: Nutrition per dietary and GI prophylaxis per routine Heme: DVT prophylaxis per routine. Hold Eliques for now and her INR is not reliable. There is no evidence of bleeding and low dose heparin. ID: Continue antibiotics and plan to de-escalation Renal; urine out put and renal funtion reviewed. Nephrology consultation.Will give Albumen, I hope this will help her hypotension. Endorcine: blood glucose is monitored Lines: all lines checked and no evidence of infections. If patient need more vasopressor, will plan central line placement. Skin: skin care to prevent pressure ulcers per nursing routine care I spent 35 min of Critical Care time with this patient. It involved decision making of high complexity to assess, manipulate, and support vital organ system failure and/or to prevent further life threatening deterioration of the patient' s condition. The time involved in the performance of separately reportable procedures was not counted toward critical care time.
[2016-10-28 08:17] LABS: Thyroid Stimulating Hormone 1.034 mcIU/mL (0.350-4.840)
--- NOTE | 2016-10-28 08:21 | Nephrology Consult Note ---
Date of Encounter: 10/28/16 Time of Encounter: 08:19 Assessment and Plan (1) Acute renal failure Current Visit: Yes Status: Acute The patient has acute kidney injury in the setting of hypotension and a recent increase in her diuretic dose according to the medical record. Echocardiogram from last her suggested pulmonary hypertension and tricuspid regurgitation. I suspect she may require a high preload in that she became intravascularly volume depleted when her Lasix was increased. She had subsequent hypotension and acute kidney injury. Since systolic left ventricular function was normal on the echocardiogram. I would expect that she could tolerate some IV fluids and this could lead to some improvement in her hypotension as well as her acute kidney injury. Qualifiers: Acute renal failure type: unspecified Qualified Code(s): N17.9 - Acute kidney failure, unspecified (2) Pulmonary hypertension Current Visit: Yes Status: Acute (3) Atrial fibrillation Current Visit: Yes Status: Chronic Qualifiers: Atrial fibrillation type: chronic Qualified Code(s): I48.2 - Chronic atrial fibrillation History of Present Illness - History of Present Illness This is an 89-year-old female who was sent from the alf to the hospital because of complaints of weakness. Patient was noted to be hypotensive and noted to have acute kidney injury. Creatinine on admission was 3.15. This morning is 2.99. Baseline creatinine back in March 2016 was 0.61. Patient does have a history of lower extremity swelling. Previous echocardiogram done last year showed evidence of pulmonary hypertension as well as tricuspid regurgitation. Patient is a poor historian. Medical record indicates that the patient recently had her Lasix increased at the alf. And apparently her lower extremity swelling improved. Currently the patient is resting comfortably in the intensive care unit. Her oxygen saturation is normal without supplemental oxygen. She does mention that she has been experiencing exertional dyspnea. On physical exam it is obvious that she had some lower extremity swelling is improved based on the appearance of her skin she currently is requiring dopamine to maintain her blood pressure. Urinalysis shows only a trace of proteinuria. Medical record also indicates on admission her blood pressure was 67/45. Past Med Surg Social Fam HX - Past Medical History Medical history: atrial fibrillation, hypertension, thyroid disease Psychiatric history: no psych history - Past Surgical History Surgical History: cholecystectomy, hysterectomy - Social History Smoking Status: Never smoker Smokeless Tobacco Status: No Alcohol use: none Drug use: none - Family History Mother Adopted: No Living Status: Age at : 79 Cause of : CVA Hx Family Cardiac Disorders: Yes Father Adopted: No Age: 85 Living Status: Cause of : atherosclerosis Hx Family Cardiac Disorders: Yes Hx Family Respiratory Disorders: Yes Medications and Allergies Apixaban [Eliquis] 2.5 mg PO BID 03/30/16 [History] Atenolol [Tenormin] 25 mg PO DAILY 03/30/16 [History] Cholecalciferol (Vitamin D3) [Vitamin D3] 10,000 unit PO WE 03/30/16 [History] LORazepam [Ativan] 0.5 mg PO DAILY 03/30/16 [History] Levothyroxine [Synthroid] 150 mcg PO DAILY 03/30/16 [History] Ropinirole HCl [Requip] 1.5 mg PO HS 03/30/16 [History] Ciprofloxacin HCl [Cipro] 250 mg PO BID 04/01/16 [History] Potassium Chloride [K-Tab ER] 20 meq PO DAILY 04/01/16 [History] Furosemide [Lasix] 20 mg PO BID 30 Days 04/04/16 [Rx] Allergies Iodinated Contrast Media - Oral and [Iodinated Contrast Media - IV Dye] Adverse Reaction (Verified 10/27/16 20:13) Vomiting Review of Systems Constitutional: weakness Nose, mouth and throat: no dizziness, no headache(s) Cardiovascular: dyspnea on exertion, edema, irregular heart rhythm Respiratory: dyspnea, dyspnea on exertion Gastrointestinal: no abdominal pain, no change in bowel habits Musculoskeletal: no muscle weakness, no numbness Integumentary: no hirsutism, no striae Neurological: weakness Psychiatric: no depression, no difficulty concentrating Hematologic/Lymphatic: no easy bruising, no lymphadenopathy Exam - Vital Signs Vital signs: Initial Vital Signs Temp Pulse Resp BP Pulse Ox 97.1 F L 88 20 116/96 99 10/27/16 19:58 10/27/16 19:58 10/27/16 19:58 10/27/16 19:58 10/27/16 19:58 Vital Signs - Last 8 Hours Temp Pulse Resp BP Pulse Ox 10/28/16 07:52 98 10/28/16 07:00 97.6 F 98 18 100/56 93 L 10/28/16 06:30 85 18 99/69 93 L 10/28/16 06:00 86 16 104/46 94 L 10/28/16 05:30 80 16 101/64 94 L 10/28/16 05:00 75 16 67/45 100 10/28/16 04:00 60 18 71/40 100 10/28/16 03:45 62 18 67/34 99 10/28/16 03:15 70 18 68/45 100 10/28/16 02:30 73 18 89/32 100 Intake and Output 10/27/16 10/28/16 10/28/16 23:59 07:59 15:59 Intake Total 2160 / 2160 Balance 2160 / 2160 Intake: IV Fluids 2160 / 2160 0.9 % Sodium Chloride 1, 1000 / 1000 000 ML @ 500 mls/hr IV BOLUS ONE Rx#:[id number] 0.9 % Sodium Chloride 300 300 / 300 ML @ 937.5 mls/hr IVC . Q20M ONE Rx#:[id number] 0.9 % Sodium Chloride 500 500 / 500 ML @ 1875 mls/hr IVC . Q16M ONE Rx#:[id number] Calcium Gluconate 1,000 110 / 110 MG In Dextrose 5% 100 ML @ 220 mls/hr IVPB ONCE ONE Rx#:[id number] Vancocin 1,000 MG In 250 / 250 Dextrose 5% 250 ML @ 166. 667 mls/hr IVPB ONCE ONE Rx#:[id number] Other: Weight 76.43 kg Blood Glucose* 62 Patient Weight 10/28/16 23:59 Weight 76.43 kg - General Appearance Exam: The patient is resting comfortably. She is in no acute distress. She awakens easily. She is able to answer questions and she just off back to sleep. Neck is supple. Lungs sounds anteriorly. Heart irregular rate and rhythm. Abdomen shows normal bowel sounds are present now since been ameliorated tenderness. Lower extremities show some mild lower extremity swelling. Physical exam suggests that she had worsening swelling previously admitted recently has decreased based on the wrinkling of her skin. Results - Lab Results 10/28/16 04:40 10/28/16 04:40 Most recent lab results Calcium 8.3 mg/dL (8.6-10.8) L 10/28/16 04:40 Magnesium 2.0 mg/dL (1.6-2.6) 10/28/16 04:40 Consult Discharge Plan - Plan Referrals: Laurent Conrad MD [Primary Care Provider] -
[2016-10-28] MEDS: 0.9 % Sodium Chloride 1,000 ML IVC SCH ×2 (09:17→22:23)
[2016-10-28 09:32] LABS: Phosphorous 6.7 mg/dL (2.3-4.7)
[2016-10-28] MEDS ORDERED: Albumin 25% 25gram/100mL 25 GM/100 ML IV.SOLN IVC SCH (11:00)
[2016-10-28 11:28] LABS: Folate 12.6 ng/mL (7.0-31.4)
[2016-10-28] MEDS: Sennosides/Docusate Sodium TABLET PO SCH (11:39)
[2016-10-28 11:46] LABS: Prothrombin Time 68.3 Seconds (9.4-12.1)
[2016-10-28] MEDS ORDERED: Ondansetron 4 MG/2 ML VIAL IVP PRN (11:46)
--- NOTE | 2016-10-28 12:57 | Electrocardiograph Report ---
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
[2016-10-28] MEDS ORDERED: D5% in Water 1,000 ML IV PRN (15:38)
[2016-10-28] MEDS ORDERED: *HR* Dextrose 50 % in Water (Syg) 50 ML SYRINGE IVP PRN (15:38)
[2016-10-28] MEDS ORDERED: Dextrose Gel 15 GM PO PRN ×2 (15:38)
[2016-10-28] MEDS: *HR* Heparin 5,000 UNIT/ML VIAL SQ SCH ×2 (17:04→23:45)
[2016-10-29 04:40] LABS: Basophils % 0.2 %; Eosinophils % 0.2 %; Hematocrit 24.4 % (35.3-44.9); Lymphocytes # 0.9 K/mcL (0.6-4.6); Lymphocytes % 15.1 %; Mean Corpuscular Hemoglobin 29.9 pg (28.0-33.3); Mean Corpuscular Volume 87.8 fL (83.0-100.0); Mean Platelet Volume 12.8 fL (9.4-12.4); Monocytes # 0.6 K/mcL (0.0-1.3); Monocytes % 9.6 %; Nucleated Red Blood Cells 0.8 /100 WBC (0); Red Blood Count 2.78 M/mcL (3.82-4.97); Red Cell Distribution Width 16.6 % (11.5-14.5); Segmented Neutrophils % 73.9 %
[2016-10-29 04:41] LABS: Hemoglobin 8.3 g/dL (11.5-15.4); Neutrophils # 4.4 K/mcL (1.6-8.9); Platelet Count 87 K/mcL (140-400)
[2016-10-29 04:53] LABS: INR 7.2; Prothrombin Time 83.1 Seconds (9.4-12.1)
[2016-10-29 05:04] LABS: Albumin/Globulin Ratio 1.1 (1.1-2.2); Bilirubin,Total 0.8 mg/dL (0.2-1.2); Calcium 8.1 mg/dL (8.6-10.8); Globulin 2.3 g/dL (2.4-3.5); Total Protein 4.8 g/dL (6.0-8.3)
[2016-10-29 05:06] LABS: Albumin 2.5 g/dL (3.5-5.0)
[2016-10-29] MEDS: Piperacillin/Tazobactam 3.375 GM in D5% in Water (Mini-Bag+) 100 ML IVPB SCH ×2 (05:25→18:14)
[2016-10-29] MEDS ORDERED: *HR* Phytonadione 5 MG TABLET PO ONE (05:48)
[2016-10-29] MEDS ORDERED: Aminoglycoside Consult 1 EACH MC ONE (08:00)
--- NOTE | 2016-10-29 08:43 | ECHO - Doppler Report ---
Echocardiogram Name: Aracelis Linton Date of Study: 10/28/2016 Date: 1925 Ht: 62.0 in Medical Record#: [id number] Age: 89 Wt: 178.0 lb Gender: Female BSA: 1.82 Order #: [id number] Location: [facility] Room #: [facility] Reading Physician: Daniel Fournier DO, FACBhavin, GAUDENCIO THAYER Oil Boiler: Aparna Wells RDCS Ordering Physician: Alber Beckham MD Primary Physician: Laurent Conrad MD Indications: Hypotension Impressions: LVEF 65%. Normal LV chamber size, wall thickness and function. Indeterminate diastolic function. Normal right ventricular structure and function. Moderately dilated right atrium. Severe tricuspid regurgitation. Moderate pulmonary hypertension. Estimated RVSP is 46 mmHg. Left Ventricular Wall Motion: Rest Echo Findings All wall segments showed normal motion. Findings: Study Quality * Technically adequate exam. ECG Findings * Atrial fibrillation. Left Ventricle * LVEF 65%. * Normal LV chamber size, wall thickness and function. * Indeterminate diastolic function. Right Ventricle * Normal right ventricular structure and function. Left Atrium * Mildly dilated left atrium. Right Atrium * Moderately dilated right atrium. Interatrial Septum * No evidence of PFO by color Doppler. Aortic Valve * Trileaflet aortic valve. * Mildly sclerotic aortic valve leaflets. * No aortic regurgitation. * No aortic stenosis. Mitral Valve * Mild mitral annular calcification * Trace mitral regurgitation. * No mitral stenosis. Tricuspid Valve * Normal tricuspid valve structure. * Severe tricuspid regurgitation. * Moderate pulmonary hypertension. * Estimated RVSP is 46 mmHg. * Estimated RA pressure is 5 mmHg. Pulmonic Valve * Pulmonic valve is not well visualized. Aorta * Normally sized aortic root. Pericardium * The pericardium appears normal. IVC * Normal IVC dimensions and inspiratory collapse. Pulmonary Artery * Normal visualized portions of the main pulmonary artery. History Hypertension Family History of CAD 04/01/2016 a Previous Echo was performed. Measurements: BP: 101/ 63 2D Normal Values RVIDd: 4.09 cm <2.7 cm IVSd: .78 cm 0.6 - 1.0 cm LVIDd: 4.02 cm 3.7 - 5.6 cm LVPWd: 1.10 cm 0.6 - 1.1 cm LVIDs: 2.22 cm 1.5 - 3.6 cm AO: 2.20 cm < 4.0 cm LA: 4.40 cm 2.0 - 4.0cm %FS: 44.80 cm >25 % LA volume: 39 Mitral Valve Peak E:1.13 m/sec Peak E' Lat Meek:9.7 cm/s Peak E' Med Meek:7.46 cm/s E/E' Lat Ratio:11.6 E/E' Med Ratio:15.1 Tricuspid Valve TV Regurg Peak Grad: 30.00mmHg TV Regurg Peak Meek: 2.76m/sec Updated by Daniel Fournier DO, STEW, JEOVANY, GAUDENCIO on 10/29/2016 8:36:47 AM electronically signed on 10/29/2016 8:37:16 AM with status of Final Wall Motion Tom: 1=Normal, 2=Hypokinesis, 3=Akinesis, 4=Dyskinesis, 5=Aneurysmal, 6=Hyperkinetic, X=Not Visualized (Blank)=Missing
[2016-10-29] MEDS: Levothyroxine Sodium 100 MCG VIAL IVP SCH (09:15)
[2016-10-29] MEDS: Sennosides/Docusate Sodium TABLET PO SCH (09:17)
[2016-10-29] MEDS: Pantoprazole 40 MG VIAL IVP SCH (09:17)
--- NOTE | 2016-10-29 09:31 | Nephrology Progress Note ---
Date of Encounter: 10/29/16 Time of Encounter: 08:15 - Assessment and Plan (1) Acute renal failure Current Visit: Yes Status: Acute NIYA in setting hypotension and volume depletion. Renal fct slowly improving. Urine output 725 cc. Will continue to monitor. Qualifiers: Acute renal failure type: unspecified Qualified Code(s): N17.9 - Acute kidney failure, unspecified Subjective Interval history: Awake. Dopamine for BP support. States not really feeling any better. Objective - Vital Signs Vital signs: Vital Signs Temp Pulse Resp BP Pulse Ox 10/29/16 09:00 94 20 88/49 96 10/29/16 08:00 106 20 106/48 98 10/29/16 07:30 97.6 F 10/29/16 06:00 106 20 89/44 96 10/29/16 05:00 94 18 96/54 97 10/29/16 04:46 92 10/29/16 04:00 97.6 F 92 20 85/47 100 10/29/16 03:00 102 20 103/65 98 10/29/16 02:00 106 18 91/45 97 10/29/16 01:00 92 20 92/57 96 10/29/16 00:36 97.7 F 10/29/16 00:00 112 21 86/51 97 10/28/16 23:52 112 10/28/16 23:00 112 21 97/60 97 10/28/16 22:00 88 18 92/56 99 10/28/16 21:00 97 20 94/63 99 10/28/16 20:44 97.5 F L 10/28/16 20:00 102 18 96/63 99 10/28/16 19:00 89/42 10/28/16 18:00 101 20 89/54 96 10/28/16 17:00 105 20 94/60 96 10/28/16 16:00 106 18 84/51 95 10/28/16 15:00 97.6 F 10/28/16 14:00 100 22 101/63 93 L 10/28/16 13:00 91 20 87/48 95 10/28/16 12:00 114 24 91/58 97 10/28/16 11:25 97.6 F 10/28/16 11:00 114 20 94/54 94 L Intake and Output 02/10/29/16 10/29/16 23:59 07:59 15:59 Intake Total 1850 / 1850 40 / 40 141 / 141 Output Total 150 / 150 450 / 450 Balance 1700 / 1700 -410 / -410 141 / 141 Intake: IV Fluids 1850 / 1850 40 / 40 141 / 141 0.9 % Sodium Chloride 1, 1000 / 1000 000 ML @ 75 mls/hr IVC . [id number] [facility] Rx#: [id number] ALBURX 5% 12.5 gm In 250 500 / 500 ml @ 60 mls/hr IVC . Q4H10M [facility] Rx#:[id number] DOPamine Premix (400mg/ 250 / 250 40 / 40 141 / 141 250mL D5W) 400 mg In 250 ml @ 5 MCG/KG/MIN 13.097 mls/hr IVC .Q19H6M [facility] Rx #:[id number] Zosyn 3.375 GM In 100 / 100 Dextrose 5% (Minibag+) 100 ML 100 ML @ 25 mls/hr IVPB Q12HR [facility] Rx#: [id number] Output: Catheter 150 / 150 450 / 450 Other: Weight 82.01 kg Blood Glucose* 82 73 73 Patient Weight 10/29/16 23:59 Weight 82.01 kg - General Appearance General appearance: Present: well-developed, well-nourished, appears started age EENT: Present: mucous membranes moist Neck: Present: no JVD Respiratory: Present: clear Cardiology: Present: irregular rhythm Additional Comments: 2-3+ generalized pitting edema Gastrointestinal: Present: hypoactive bowel sounds Integumentary: Present: warm and dry Neurologic: Present: alert and oriented x3 Psychiatric: Present: mood/affect appropriate, cooperative - Lab 10/29/16 04:00 10/29/16 04:00 Most recent lab results Calcium 8.1 mg/dL (8.6-10.8) L 10/29/16 04:00 Phosphorus 6.7 mg/dL (2.3-4.7) H 10/28/16 04:40 Magnesium 2.0 mg/dL (1.6-2.6) 10/28/16 04:40 Consult Discharge Plan - Plan Referrals: Laurent Conrad MD [Primary Care Provider] -
[2016-10-29 09:47] LABS: Basophils % 0.2 %; Hemoglobin 8.1 g/dL (11.5-15.4)
[2016-10-29 09:49] LABS: Eosinophils % 0.5 %; Hematocrit 24.4 % (35.3-44.9); Immature Granulocytes % 0.6 % (0-4); Immature Platelets 8.1 % (1.1-6.1); Mean Corpuscular HGB Conc 33.2 g/dL (31.6-35.5); Mean Corpuscular Hemoglobin 28.8 pg (28.0-33.3); Mean Corpuscular Volume 86.8 fL (83.0-100.0); Mean Platelet Volume 11.5 fL (9.4-12.4); Monocytes # 0.8 K/mcL (0.0-1.3); Monocytes % 12.7 %; Neutrophils # 4.4 K/mcL (1.6-8.9); Nucleated Red Blood Cells 0.8 /100 WBC (0); Red Blood Count 2.81 M/mcL (3.82-4.97); Red Cell Distribution Width 16.2 % (11.5-14.5)
[2016-10-29 09:57] LABS: Platelet Count 92 K/mcL (140-400)
[2016-10-29 10:26] LABS: INR 7.1; Prothrombin Time 81.9 Seconds (9.4-12.1)
[2016-10-29 10:27] LABS: Activated Partial Thrombo Time 153.7 Seconds (26.0-36.0)
--- NOTE | 2016-10-29 10:28 | Cardiology Consult Note ---
<Eleno Barrera - Last Filed: 10/29/16 09:55> Date of Encounter: 10/29/16 Time of Encounter: 09:55 Assessment and Plan (1) Hypotension Current Visit: Yes Status: Acute Etiology is uncertain at this time. Patient's echo revealed normal EF with mildly dilated RV with normal function. There was noted poor coaptation of tricuspid valves with moderate tricuspid regurgitation. There appears to be no pressure or volume overload of RV. This does not appear to be cardiogenic in origin. Qualifiers: Hypotension type: idiopathic hypotension Qualified Code(s): I95.0 - Idiopathic hypotension (2) Atrial fibrillation Current Visit: Yes Status: Chronic Chronic with rate controlled. On eliquis. INR 7.2 this AM. Recommend correction of INR. Qualifiers: Atrial fibrillation type: chronic Qualified Code(s): I48.2 - Chronic atrial fibrillation (3) Lower extremity edema Current Visit: No Status: Chronic Normal EF on echo. Not likely cardiogenic shock. Qualifiers: Laterality: bilateral Qualified Code(s): R60.0 - Localized edema (4) Acute renal failure Current Visit: Yes Status: Acute Management by primary and nephrology. Likely NIYA being the cause for elevated cardiac enzymes. Qualifiers: Acute renal failure type: unspecified Qualified Code(s): N17.9 - Acute kidney failure, unspecified (5) Elevation of cardiac enzymes Current Visit: Yes Status: Acute Likely due to NIYA. Discussion w patient/family: The assessment and plan as outlined above was discussed with the patient and/or family members who expressed understanding and agreement. All questions were answered. Thank you for involving us in the care of your patient. Please call with any questions. History of Present Illness Consult date: 10/29/16 Requesting physician: Mohinder Ballesteros Chief complaint: Hypotension History of present illness: Ms. Linton is a 89 year old female from [facility] to [facility] to the ED for generalized weakness. History of HTN, hypothyroidism, Chronic A-fib on Eloquis. Patient has history of CHF with a recent increase in lasix dosing. She states that it had helped her symptomatically with her b/l LE edema and dyspnea. Denies any recent history of chest pain. Upon admission to the ED patient found to have NIYA and hypotension. The patient's INR is 7.2 this AM. Patient appears to be mentating appropriately but does not recall any details of the recent events other than not feeling herself. Patient started on Dopamine in the ED. Remains hypotensive with MAPs in the upper 50's-60's. There was concern for cardiorenal sydrome, so echo was ordered. No previous echo on record at [facility]. She apparently sees someone in [facility] according to records. Current echo revealed EF at >60% with mild dilated RV that has normal function. She has moderate tricuspid regurg with poor coaptation of the tricuspid valve. Patient's troponins elevated at 0.09 but have trended downwards to 0.07 today. Past Med Surg Social Fam HX - Past Medical History Attestation: Yes The following information was validated with the patient. Source: patient, old records reviewed Medical history: atrial fibrillation, hypertension, thyroid disease Psychiatric history: no psych history - Past Surgical History Surgical History: cholecystectomy, hysterectomy - Social History Smoking Status: Never smoker Smokeless Tobacco Status: No Alcohol use: none Drug use: none Current living situation: ECF - Family History Mother Adopted: No Living Status: Age at : 79 Cause of : CVA Hx Family Cardiac Disorders: Yes Father Adopted: No Age: 85 Living Status: Cause of : atherosclerosis Hx Family Cardiac Disorders: Yes Hx Family Respiratory Disorders: Yes Medications and Allergies Apixaban [Eliquis] 2.5 mg PO BID 03/30/16 [History] Levothyroxine [Synthroid] 150 mcg PO DAILY 03/30/16 [History] Ropinirole HCl [Requip] 1.5 mg PO HS 03/30/16 [History] Potassium Chloride [K-Tab ER] 20 meq PO DAILY 04/01/16 [History] Furosemide [Lasix] 20 mg PO BID PRN 10/28/16 [History] Allergies Iodinated Contrast Media - Oral and [Iodinated Contrast Media - IV Dye] Adverse Reaction (Verified 10/27/16 20:13) Vomiting All Systems Review: A 10-system review of systems was performed and is negative for pertinent findings except as documented above in the HPI. - Constitutional Constitutional: fatigue, weight gain - Cardiovascular Cardiovascular: dyspnea on exertion, leg edema Physical Examination Vital Signs, Last 4 Hours Temp Pulse Resp BP Pulse Ox 10/29/16 09:00 94 20 88/49 96 10/29/16 08:00 106 20 106/48 98 10/29/16 07:30 97.6 F 10/29/16 06:00 106 20 89/44 96 General: Conversant, No Apparent Distress HEENT: Mucus Membranes Moist Neck: No JVD Cardiac: Normal S1 and S2, No Murmur Lungs: Normal Breath Sounds, No Wheeze, Rales, Rhonchi Neuro: Other (Awakened easily. Answered questions appropraitely. ) Extremities: Normal Pulses, Other (+3 pitting in bilateral LE, non-pitting in face and b/l UE.) Results 10/29/16 04:00 10/29/16 04:00 Lab Results 10/28/16 10/28/16 10/29/16 11:30 17:13 04:00 WBC Hgb Hct Plt Count INR 6.0 H* Sodium 140 Potassium 5.0 H Chloride 108 Carbon Dioxide 21 BUN 106 H Creatinine 2.85 H Glucose 76 Calcium 8.1 L Total Bilirubin 0.8 AST 41 H ALT 29 Alkaline Phosphatase 94 Troponin I 0.09 H* 10/29/16 10/29/16 04:00 04:00 WBC 6.0 Hgb 8.3 L D Hct 24.4 L Plt Count 87 L INR 7.2 H* Sodium Potassium Chloride Carbon Dioxide BUN Creatinine Glucose Calcium Total Bilirubin AST ALT Alkaline Phosphatase Troponin I - Imaging and Cardiology Echo: report reviewed, image reviewed - EKG Interpretation EKG results cardiology: personally reviewed, no diagnostic ischemia Consult Discharge Plan - Plan Referrals: Laurent Conrad MD [Primary Care Provider] - <Mira Love - Last Filed: 10/29/16 16:44> Date of Encounter: 10/29/16 Assessment and Plan Discussion w patient/family: The assessment and plan as outlined above was discussed with the patient and/or family members who expressed understanding and agreement. All questions were answered. Thank you for involving us in the care of your patient. Please call with any questions. History of Present Illness History of present illness: Ms. Linton is a 89 year old female All Systems Review: A 10-system review of systems was performed and is negative for pertinent findings except as documented above in the HPI. Physical Examination Vital Signs, Last 4 Hours Temp Pulse Resp BP Pulse Ox 10/29/16 16:00 97.5 F L 95 18 82/62 100 10/29/16 15:45 97.5 F L 10/29/16 15:00 101 18 82/50 100 10/29/16 14:01 97.4 F L 102 18 81/56 100 10/29/16 13:56 99 18 101/50 100 10/29/16 13:47 97.4 F L 100 18 101/50 100 10/29/16 13:00 100 18 104/59 100 Results 10/29/16 09:10 10/29/16 04:00 Lab Results 10/28/16 10/29/16 10/29/16 17:13 04:00 04:00 WBC 6.0 Hgb 8.3 L D Hct 24.4 L Plt Count 87 L INR APTT D-Dimer Sodium 140 Potassium 5.0 H Chloride 108 Carbon Dioxide 21 BUN 106 H Creatinine 2.85 H Glucose 76 Calcium 8.1 L Total Bilirubin 0.8 AST 41 H ALT 29 Alkaline Phosphatase 94 Troponin I 0.09 H* 10/29/16 10/29/16 10/29/16 04:00 09:10 09:10 WBC 6.3 Hgb 8.1 L Hct 24.4 L Plt Count 92 L INR 7.2 H* 7.1 H* APTT 153.7 H* D-Dimer 283 Sodium Potassium Chloride Carbon Dioxide BUN Creatinine Glucose Calcium Total Bilirubin AST ALT Alkaline Phosphatase Troponin I 10/29/16 11:20 WBC Hgb Hct Plt Count INR 6.4 H* APTT D-Dimer Sodium Potassium Chloride Carbon Dioxide BUN Creatinine Glucose Calcium Total Bilirubin AST ALT Alkaline Phosphatase Troponin I - Attending Attestation I examined this patient and my medical decision-making was reviewed with the LONG TERM CARE PHLEBOTOMIST/PA/Advanced Practice Nurse/Resident Physician. I agree with the documented findings, disposition and treatment plan. Ms. Linton's presentation does not appear related to a cardiac etiology. Rather , it appears that she is malnourished, is not eating or drinking and having nausea and vomiting. She has also been on diuretics. Hypotension and ARF are most likely secondary to profound volume depletion, anemia and possibly bleeding. Her echo images were reviewed. This demonstrates slightly hyperdynamic LV systolic function. The RV is mildly dilated but with normal function. There is poor coaptation of her tricuspid leaflets with resulting TR which is probably not a new finding. The family reports being aware of a "valve " by her primary nuclear design engineer and was told that there was nothing to do. Overall, her clinical picture is not consistent with a cardiac event. Troponin elevation is mild, flat and adynamic and not indicative of an ACS. Incidentally, she was also discovered to have a supratherapeutic INR of 7. The degree of INR rise may be multifactorial and in part due to profound ARF while on Eliquis and possibly also an element of liver dysfunction and malnourished state. I agree with supportive management. She otherwise has controlled AF. We have no further recommendations from a cardiac standpoint. Please call with questions. We will sign off.
[2016-10-29 11:00] LABS: Heparin anti-factor XA UFH 0.06 IU/mL (0.30-0.70)
--- NOTE | 2016-10-29 11:49 | Pulmonology Progress Note ---
<González Alvarado - Last Filed: 10/29/16 11:44> Date of Encounter: 10/29/16 Time of Encounter: 11:44 Assessment and Plan (1) Hypovolemic shock Current Visit: Yes Status: Suspected Pt. remains hypotensive requiring pressor support with dopamine @ 5mcg/kg attempts to wean dopamine have failed MAP remains 60-70 IVF d/c'd d/t increased haziness on CXR this am likely 2/2 IVF Hgb: 12.2 on 10/27/16, 10.1 on 10/28/16, 8.1 on 10/29/16 Suspicious for GI bleed DIC panel: Fibrinogen: 239, D-Dimer 283, Plt: 92. Likely not DIC. CT abd/pel/chest pending to r/o GI bleed INR: 6.0 10/28/16 INR: 7.2 10/29/16 Giving FFP and vitamin K in attempt to reverse INR to normal range for central line placement GI consulted Occult stool positive Type and Screen Will give 2 units PRBC (2) NIYA (acute kidney injury) Current Visit: Yes Status: Acute likely 2/2 hypovolemia from possible GI bleed baseline: GFR: >60, Scr: 0.7, BUN: 15 GFR 18 on 10/28/16, GFR 19 on 10/29/16 Scr: 3.15 on 10/27/16, Scr 2.85 on 10/29/16 BUN: 95 on 10/27/16, BUN 106 on 10/29/16 nephro on board. Appreciate their recommendations UOP 1.2 L this admission will continue to monitor May require HD (3) Anasarca Current Visit: Yes Status: Acute Continued pitting edeme in LE Edema appreciated in abdomen, face. Also noted on previous CT abd/pelvis Believe this may be 2/2 malnutrition at this time. Pt. has been vomiting and not eating well for some time Albumin remains low at 2.5 Liver enzymes not elevated PT/INR: 81.9/7.1 (4) Elevated lipase Current Visit: Yes Status: Acute currently stable (5) Hyperkalemia Current Visit: Yes Status: Chronic K+ 5.0 today, down from 5.2 yesterday (10/28/16) continue to monitor (6) Hypoalbuminemia Current Visit: Yes Status: Acute suspicious to be 2/2 malnutrition 2.5 today s/p 50 grams albumin 10/28/16 continue to monitor (7) Liver lesion Current Visit: Yes Status: Acute Liver u/s revealed 6.8 cm mildly complicated cyst with mild LUQ ascites (8) Pleural effusion Current Visit: Yes Status: Acute CXR this am (10/29/16) revealed worsening of right sided haziness, possibly d/t volume overload will d/c IVF at this time Likely not PNA or infectious. Will D/C Vanc at this time. Will continue Zosyn empirically (9) Atrial fibrillation Current Visit: Yes Status: Chronic chronic stable continue to hold eliquis stop heparin also d/t possible GI bleed Qualifiers: Atrial fibrillation type: chronic Qualified Code(s): I48.2 - Chronic atrial fibrillation (10) Hypothyroidism Current Visit: Yes Status: Chronic chronic stable Qualifiers: Hypothyroidism type: unspecified Qualified Code(s): E03.9 - Hypothyroidism , unspecified (11) DVT prophylaxis Current Visit: Yes Status: Acute INR currently 7.1 no DVT prophylaxis indicated as she is physiologically anticoagulated Subjective Principal diagnosis: Hypovolemic shock Interval history: Patient seen and examined. Increased fatigue this am. Pt. still has nausea and vomiting. Continues to need pressure support with dopamine. Unable to place a central line at this time d/t INR of 7.2. Will give FFP and vitamin K to attempt to correct INR in order to provide intravascular support. Weaning of dopamine has been attempted, however MAP drops into the 50's when dopamine, which is currently at 5mcg/kg is decreased. She continues to receive 5mcg/kg dopamine. Objective PUL Vital signs: Last Vital Signs Temp 97.6 F 10/29/16 07:30 Pulse 99 10/29/16 11:37 Resp 18 10/29/16 10:49 BP 98/61 10/29/16 10:49 Pulse Ox 99 10/29/16 10:49 General appearance: lethargic Eyes: nonicteric ENT: oropharynx dry, other (angular chelosis and glossitis) Effort: mildly labored Auscultation: bilateral: clear, diminished breath sounds Cardiovascular: irregular rhythm Gastrointestinal: normoactive bowel sounds, non-distended Extremities: edema, anasarca other (appears neurologically intact, just fatigued ) Results - Laboratory Findings CBC and BMP: 10/29/16 09:10 10/29/16 04:00 PT/INR, D-dimer PT 81.9 Seconds (9.4-12.1) H* 10/29/16 09:10 D-Dimer 283 ng/mLFEU (0-500) 10/29/16 09:10 Abnormal lab findings: Abnormal lab results RBC 2.81 M/mcL (3.82-4.97) L 10/29/16 09:10 Hgb 8.1 g/dL (11.5-15.4) L 10/29/16 09:10 Hct 24.4 % (35.3-44.9) L 10/29/16 09:10 RDW 16.2 % (11.5-14.5) H 10/29/16 09:10 Plt Count 92 K/mcL (140-400) L 10/29/16 09:10 Nucleated RBCs/100 WBC 0.8 /100 WBC (0) H 10/29/16 09:10 Immature Plt Fraction 8.1 % (1.1-6.1) H 10/29/16 09:10 PT 81.9 Seconds (9.4-12.1) H* 10/29/16 09:10 INR 7.1 H* 10/29/16 09:10 APTT 153.7 Seconds (26.0-36.0) H* 10/29/16 09:10 Heparin Anti-Xa, Unfract 0.06 IU/mL (0.30-0.70) L 10/29/16 09:10 Potassium 5.0 mEq/L (3.5-4.5) H 10/29/16 04:00 BUN 106 mg/dL (7-20) H 10/29/16 04:00 Creatinine 2.85 mg/dL (0.57-1.11) H 10/29/16 04:00 Est GFR ( Amer) 19 (> 60) L 10/29/16 04:00 Est GFR (Non-Af Amer) 16 (> 60) L 10/29/16 04:00 BUN/Creatinine Ratio 37 (6-26) H 10/29/16 04:00 Calculated Osmolality 322 (280-300) H 10/29/16 04:00 Calcium 8.1 mg/dL (8.6-10.8) L 10/29/16 04:00 Phosphorus 6.7 mg/dL (2.3-4.7) H 10/28/16 04:40 AST 41 Units/L (5-34) H 10/29/16 04:00 Troponin I 0.09 ng/mL (0-0.03) H* 10/28/16 17:13 C-Reactive Protein 21 mg/L (Less than 5) H 10/28/16 04:40 B-Natriuretic Peptide 684 pg/mL (0-100) H 10/27/16 20:35 Serum Total Protein 4.8 g/dL (6.0-8.3) L 10/29/16 04:00 Albumin 2.5 g/dL (3.5-5.0) L D 10/29/16 04:00 Globulin 2.3 g/dL (2.4-3.5) L 10/29/16 04:00 Lipase 168 Units/L (8-78) H 10/27/16 20:35 Vitamin B12 1542 pg/mL (213-816) H 10/28/16 09:10 Urine Clarity Cloudy (Clear) A 10/27/16 20:46 Urine Microscopic RBC 3-5 per hpf (0-3) H 10/27/16 20:46 Urine Microscopic WBC 3-5 per hpf (0-3) H 10/27/16 20:46 Ur Squamous Epith Cells Many per lpf (None-Few) H 10/27/16 20:46 - Microbiology Findings Microbiology Findings: Microbiology, Last 48 Hours 10/28/16 05:00 Blood Culture - Preliminary Peripheral Venipuncture No growth. - Clinical Findings Intake & Output: Intake & Output 10/28/16 10/29/16 10/29/16 23:59 07:59 15:59 Intake Total 1850 / 1850 40 / 40 241 / 241 Output Total 150 / 150 450 / 450 250 / 250 Balance 1700 / 1700 -410 / -410 -9 / -9 Weight 82.01 kg Consult Discharge Plan - Plan Referrals: Laurent Conrad MD [Primary Care Provider] - <Mohinder Ballesteros - Last Filed: 10/29/16 16:46> Date of Encounter: 10/29/16 Objective PUL Vital signs: Last Vital Signs Temp 97.5 F L 10/29/16 16:33 Pulse 100 10/29/16 16:33 Resp 16 10/29/16 16:33 BP 82/62 10/29/16 16:00 Pulse Ox 100 10/29/16 16:33 Results - Laboratory Findings CBC and BMP: 10/29/16 09:10 10/29/16 04:00 PT/INR, D-dimer PT 73.5 Seconds (9.4-12.1) H* 10/29/16 11:20 D-Dimer 283 ng/mLFEU (0-500) 10/29/16 09:10 Abnormal lab findings: Abnormal lab results RBC 2.81 M/mcL (3.82-4.97) L 10/29/16 09:10 Hgb 8.1 g/dL (11.5-15.4) L 10/29/16 09:10 Hct 24.4 % (35.3-44.9) L 10/29/16 09:10 RDW 16.2 % (11.5-14.5) H 10/29/16 09:10 Plt Count 92 K/mcL (140-400) L 10/29/16 09:10 Nucleated RBCs/100 WBC 0.8 /100 WBC (0) H 10/29/16 09:10 Immature Plt Fraction 8.1 % (1.1-6.1) H 10/29/16 09:10 PT 73.5 Seconds (9.4-12.1) H* 10/29/16 11:20 INR 6.4 H* 10/29/16 11:20 APTT 153.7 Seconds (26.0-36.0) H* 10/29/16 09:10 Heparin Anti-Xa, Unfract 0.06 IU/mL (0.30-0.70) L 10/29/16 09:10 Potassium 5.0 mEq/L (3.5-4.5) H 10/29/16 04:00 BUN 106 mg/dL (7-20) H 10/29/16 04:00 Creatinine 2.85 mg/dL (0.57-1.11) H 10/29/16 04:00 Est GFR ( Amer) 19 (> 60) L 10/29/16 04:00 Est GFR (Non-Af Amer) 16 (> 60) L 10/29/16 04:00 BUN/Creatinine Ratio 37 (6-26) H 10/29/16 04:00 Calculated Osmolality 322 (280-300) H 10/29/16 04:00 Calcium 8.1 mg/dL (8.6-10.8) L 10/29/16 04:00 Phosphorus 6.7 mg/dL (2.3-4.7) H 10/28/16 04:40 AST 41 Units/L (5-34) H 10/29/16 04:00 Troponin I 0.09 ng/mL (0-0.03) H* 10/28/16 17:13 C-Reactive Protein 21 mg/L (Less than 5) H 10/28/16 04:40 B-Natriuretic Peptide 684 pg/mL (0-100) H 10/27/16 20:35 Serum Total Protein 4.8 g/dL (6.0-8.3) L 10/29/16 04:00 Albumin 2.5 g/dL (3.5-5.0) L D 10/29/16 04:00 Globulin 2.3 g/dL (2.4-3.5) L 10/29/16 04:00 Lipase 168 Units/L (8-78) H 10/27/16 20:35 Vitamin B12 1542 pg/mL (213-816) H 10/28/16 09:10 Urine Clarity Cloudy (Clear) A 10/27/16 20:46 Urine Microscopic RBC 3-5 per hpf (0-3) H 10/27/16 20:46 Urine Microscopic WBC 3-5 per hpf (0-3) H 10/27/16 20:46 Ur Squamous Epith Cells Many per lpf (None-Few) H 10/27/16 20:46 - Microbiology Findings Microbiology Findings: Microbiology, Last 48 Hours 10/28/16 05:00 Blood Culture - Preliminary Peripheral Venipuncture No growth. - Clinical Findings Intake & Output: Intake & Output 10/29/16 10/29/16 10/29/16 07:59 15:59 23:59 Intake Total 40 / 40 241 / 241 315 / 315 Output Total 450 / 450 550 / 550 Balance -410 / -410 -309 / -309 315 / 315 Weight 82.01 kg - Attending Attestation I examined this patient and my medical decision-making was reviewed with the HANDBELL CHOIR DIRECTOR/PA/Advanced Practice Nurse/Resident Physician. I agree with the documented findings, disposition and treatment plan as described except to the extent set forth below. Patient seen and examined. Labs, radiology, chart personally reviewed. Agree with resident's history and physical, assessment, plan with following comments: PATENT SEARCHER: Patient follows commands, however patient is lethargic and weak. Pulmonary: Acceptable oxygenation and ventilation. I am still concerned her condition could deteriorate pending that happen with supportive care with noninvasive ventilation. Patient has bilateral pleural effusion, due to coagulopathy not able to do thoracentesis and patient is not complaining at this time Cardiovascular: unstable. Patient is in shock which is still not clear etiology differential diagnosis hemorrhagic/hypovolemic and they discussed with the cardiology team and appreciate their input. Due to coagulopathy central line has risk of bleeding and will accept to continue dopamine low dose through the current IV access. There is a possibility this is due to poor nutrition. Her shock is less likely cardiogenic in nature with good ejection fraction and echocardiogram. GI: Nutrition per dietary and GI prophylaxis per routine. Patient needs to have multivitamins including thiamine and there is a concern all of refeeding syndrome in this patient. I am concerned also of GI bleed due to coagulopathy. Heme: DVT prophylaxis per routine. DIC panel was done and ID: Continue antibiotics and plan to de-escalation. Even though I think less likely this is septic shock will continue antibiotics with de-escalation. Renal; urine out put and renal funtion reviewed. Nephrology follow-up Endorcine: blood glucose is monitored Lines: all lines checked and no evidence of infections Skin: skin care to prevent pressure ulcers per nursing routine care I spent 35 min of Critical Care time with this patient. It involved decision making of high complexity to assess, manipulate, and support vital organ system failure and/or to prevent further life threatening deterioration of the patient' s condition. The time involved in the performance of separately reportable procedures was not counted toward critical care time.
[2016-10-29 11:58] LABS: INR 6.4; Prothrombin Time 73.5 Seconds (9.4-12.1)
[2016-10-29] MEDS ORDERED: 0.9 % Sodium Chloride 250 ML ONE ×2 (13:36→23:02)
--- NOTE | 2016-10-29 15:33 | Palliative - Consult Note ---
Date of Encounter: 10/29/16 Time of Encounter: 13:30 - Assessment and Plan (1) Nausea Current Visit: Yes Status: Acute Assessment and plan: Continue Zofran and monitor. (2) Constipation Current Visit: Yes Status: Acute Assessment and plan: Add Colace bid and monitor BM's Qualifiers: Constipation type: unspecified constipation type Qualified Code(s): K59.00 - Constipation, unspecified (3) Counseling regarding advanced care planning and goals of care Current Visit: Yes Status: Acute Assessment and plan: DIscussed with pt with daughters Tanner and Flor present. She had previously changed code status to DNRCC-Arrest. Re-discussed today and pt stated that she also did not want intubation or placed on ventilator. Changed code status to DNR/DNI. She is agreeable to present supportive care and testing, and would be ok for short term dialysis if needed. Patient also completed healthcare power of compliance attorney and selected Tanner as primary agent and flor and shelli Massey as alternates. [facility] since last summer, and expected to stay there snf. (4) Acute renal failure Current Visit: Yes Status: Acute Qualifiers: Acute renal failure type: unspecified Qualified Code(s): N17.9 - Acute kidney failure, unspecified (5) Pleural effusion Current Visit: Yes Status: Acute (6) Atrial fibrillation Current Visit: Yes Status: Chronic Qualifiers: Atrial fibrillation type: chronic Qualified Code(s): I48.2 - Chronic atrial fibrillation Palliative-CN HPI - Data of Consult Requesting Physician: Mary Kay Virk Primary Care Provider: Laurent Conrad, - Consult Narrative History of present illness: Ms. Linton is a 89 year old female with a history of HTN, hypothyroidism, hyperkalemia and atrial fibrillation, who was admitted with nausea/vomiting, lower extremity edema, weakness that family states has been ongoing for quite some time. Currently, still awaiting diagnostic information as patient may be bleeding, has elevated INR, pleural effusions and anasarca and acute kidney injury. Upon my visit, she appears to be resting comfortably and not in any distress. She is alert and oriented x3. Daughters Tanner and Flor are at the bedside. They are awaiting results of additional CT scans this afternoon. She is being treated for hypovolemia and receiving PRBC's and FFP this afternoon. CC: Mary Kay Virk Past Med Surg Social Fam HX - Past Medical History Medical history: atrial fibrillation, hypertension, thyroid disease Psychiatric history: no psych history - Past Surgical History Surgical History: cholecystectomy, hysterectomy - Social History Smoking Status: Never smoker Smokeless Tobacco Status: No Alcohol use: none Drug use: none - Family History Mother Adopted: No Living Status: Age at : 79 Cause of : CVA Hx Family Cardiac Disorders: Yes Father Adopted: No Age: 85 Living Status: Cause of : atherosclerosis Hx Family Cardiac Disorders: Yes Hx Family Respiratory Disorders: Yes Medications and Allergies Apixaban [Eliquis] 2.5 mg PO BID 03/30/16 [History] Levothyroxine [Synthroid] 150 mcg PO DAILY 03/30/16 [History] Ropinirole HCl [Requip] 1.5 mg PO HS 03/30/16 [History] Potassium Chloride [K-Tab ER] 20 meq PO DAILY 04/01/16 [History] Furosemide [Lasix] 20 mg PO BID PRN 10/28/16 [History] Allergies Iodinated Contrast Media - Oral and [Iodinated Contrast Media - IV Dye] Adverse Reaction (Verified 10/27/16 20:13) Vomiting All systems: reviewed and no additional remarkable complaints except as stated ( weakness, nausea/vomiting with oral intake, shortness of breath, lower extremitiy edema) Palliative Care-Exam - Constitutional Vitals: Temp Pulse Resp BP Pulse Ox 97.4 F L 102 18 81/56 100 10/29/16 14:01 10/29/16 14:01 10/29/16 14:01 10/29/16 14:01 10/29/16 14:01 General appearance: Present: no acute distress - Head Head Exam: Present: normal inspection, normocephalic - Eye Eye exam: Present: normal appearance, PERRL Pupils: Present: normal accommodation - Expanded Respiratory Exam Location: decreased breath sounds: Left, Right, Lower - Cardiovascular Cardiovascular exam: Present: +S1, +S2 - GI/Abdominal Exam GI/Abdominal exam: Present: distended, normal bowel sounds, soft - Catheter Type: Urethral ([place]) Additional comments: Light yellow urine - Extremities Exam Additional comments: 3-4+ edema bilateral edema lower extremities - Neurological Exam Neurological exam: Present: alert, oriented X3, strengths equal and symetr throughout Additional comments: generalized weakness - Skin Skin exam: Present: dry, pallor, warm Internal Medicine - CN: Reslt - Labs CBC & Chem 7: 10/29/16 09:10 10/29/16 04:00 Labs: Short CBC 10/29/16 10/29/16 Range/Units 04:00 09:10 WBC 6.0 6.3 (4.3-11.1) K/mcL Hgb 8.3 L D 8.1 L (11.5-15.4) g/dL Hct 24.4 L 24.4 L (35.3-44.9) % Plt Count 87 L 92 L (140-400) K/mcL Neutrophils # 4.4 4.4 (1.6-8.9) K/mcL BMP 10/29/16 04:00 Sodium 140 Potassium 5.0 H Chloride 108 Carbon Dioxide 21 BUN 106 H Creatinine 2.85 H Glucose 76 Calcium 8.1 L Cardiac Enzymes 10/28/16 Range/Units 17:13 Troponin I 0.09 H* (0-0.03) ng/mL Liver Function 10/29/16 Range/Units 04:00 Total Bilirubin 0.8 (0.2-1.2) mg/dL AST 41 H (5-34) Units/L ALT 29 (0-55) Units/L Alkaline Phosphatase 94 (38-126) Units/L Albumin 2.5 L D (3.5-5.0) g/dL - ABG Interpretation ABG results: PT/INR, D-dimer PT 73.5 Seconds (9.4-12.1) H* 10/29/16 11:20 D-Dimer 283 ng/mLFEU (0-500) 10/29/16 09:10 - Impressions Impressions Chest X-Ray 10/29/16 04:00 IMPRESSION: 1. No lines or tubes. 2. Stable cardiomegaly. 3. Unchanged bibasilar opacities and bilateral effusions after accounting for differences in patient positioning. D/ / 10/29/2016 06:58:43 Aria Rodríguez MD / amy Interpreting Provider: Aria Rodríguez MD Abdomen/Pelvis CT 10/29/16 10:48 IMPRESSION: 1. Stable large bilateral pleural effusions with volume loss in the lung bases, right side greater than left. 2. Marked edema is noted along the abdominal wall, as well as bilateral lower extremities, asymmetric on the right. 3. Colonic diverticulosis. 4. Atherosclerotic disease. 5. Large cystic lesion noted in the caudate lobe of the liver, stable. D/ / 10/29/2016 12:50:04 Erick Salinas MD / Debo Alvarado Interpreting Provider: Erick Salinas MD Chest CT 10/29/16 10:48 IMPRESSION: 1. Small left pleural effusion and moderate to large right pleural effusion, without evidence of hemothorax. 2. Coronary atherosclerosis. 3. Mild diffuse anasarca. D/ / 10/29/2016 13:08:44 Jose Brandon MD / [facility] Interpreting Provider: Jose Brandon MD Consult Discharge Plan - Plan Referrals: Laurent Conrad MD [Primary Care Provider] - Palliative Quality Palliative Quality: Screen for Code Status: Yes, Screen for Goals of Care: Yes, Screen for Pain: Yes, If Pain Regimen Started, Initiate Bowel Regimen: NA, Screen for Nausea/Vomitting: Yes Code Status: 10/28/16 02:48 Resuscitation Status: Active [RES] Routine Comment: Resuscitation Status: Full Code 10/28/16 16:20 CODE [Resuscitation Status: Active] [RES] Routine Comment: Resuscitation Status: DNR-Comfort Care-Arrest 10/29/16 13:52 DNR [Resuscitation Status: Active] [RES] Routine Comment: Resuscitation Status: [id number]
[2016-10-29] MEDS: Thiamine (B-1) 100 MG in D5% in Water 50 ML IVPB SCH (17:56)
[2016-10-30 05:23] LABS: Basophils % 0.3 %
[2016-10-30 05:25] LABS: Eosinophils # 0.1 K/mcL (0.0-0.6); Hematocrit 27.6 % (35.3-44.9); Hemoglobin 9.4 g/dL (11.5-15.4); INR 3.3; Immature Granulocytes % 0.7 % (0-4); Immature Platelets 7.3 % (1.1-6.1); Lymphocytes # 1.1 K/mcL (0.6-4.6); Lymphocytes % 16.5 %; Mean Corpuscular HGB Conc 34.1 g/dL (31.6-35.5); Mean Corpuscular Hemoglobin 29.5 pg (28.0-33.3); Mean Corpuscular Volume 86.5 fL (83.0-100.0); Mean Platelet Volume 11.9 fL (9.4-12.4); Monocytes % 14.9 %; Neutrophils # 4.5 K/mcL (1.6-8.9); Nucleated Red Blood Cells 0.7 /100 WBC (0); Prothrombin Time 37.1 Seconds (9.4-12.1); Red Blood Count 3.19 M/mcL (3.82-4.97); Red Cell Distribution Width 15.1 % (11.5-14.5); Segmented Neutrophils % 66.6 %
[2016-10-30 05:26] LABS: Platelet Count 75 K/mcL (140-400)
[2016-10-30] MEDS: Piperacillin/Tazobactam 3.375 GM in D5% in Water (Mini-Bag+) 100 ML IVPB SCH (05:49)
[2016-10-30 05:52] LABS: Albumin 2.8 g/dL (3.5-5.0); Albumin/Globulin Ratio 0.9 (1.1-2.2); Bilirubin,Total 1.2 mg/dL (0.2-1.2); Calcium 8.7 mg/dL (8.6-10.8); Potassium 4.3 mEq/L (3.5-4.5)
[2016-10-30 06:06] LABS: Total Protein 5.8 g/dL (6.0-8.3)
--- NOTE | 2016-10-30 08:47 | Gastroenterology Consult Note ---
<Lucina Bennett - Last Filed: 10/30/16 12:27> Date of Encounter: 10/30/16 Time of Encounter: 10:40 - Assessment and plan (1) Anemia Current Visit: Yes Status: Acute Assessment and plan: r/o GIB. EGD/Colon when safe to do so. INR is currently 3.3, needs to be 1.5 or less to proceed safely. Continue efforts to reverse. Qualifiers: Anemia type: unspecified type Qualified Code(s): D64.9 - Anemia, unspecified (2) Thrombocytopenia Current Visit: Yes Status: Chronic Assessment and plan: Suspect liver etiology, liver w/u pending. (3) Elevated LFTs Current Visit: Yes Status: Chronic Assessment and plan: Liver w/u pending - r/o cirrhosis (4) Coagulopathy Current Visit: Yes Status: Acute Assessment and plan: Unclear etiology, continue to reverse safely to 1.5 for invasive procedures. (5) Acute renal failure Current Visit: Yes Status: Acute Assessment and plan: Nephrology following. Qualifiers: Acute renal failure type: unspecified Qualified Code(s): N17.9 - Acute kidney failure, unspecified (6) Constipation Current Visit: Yes Status: Acute Assessment and plan: Fiber supp daily, miralax up to bid Qualifiers: Constipation type: unspecified constipation type Qualified Code(s): K59.00 - Constipation, unspecified (7) Elevated lipase Current Visit: Yes Status: Acute Assessment and plan: No evidence of acute pancreatitis in imaging. N/V apparent. (8) Elevation of cardiac enzymes Current Visit: Yes Status: Acute Assessment and plan: Cardiology following. (9) Hypoalbuminemia Current Visit: Yes Status: Acute Assessment and plan: Likely multifactorial, malnutrition, possible liver disease. (10) Hypotension Current Visit: Yes Status: Acute Assessment and plan: Unclear etiology, hospitalist/animal assisted therapist management. Currently on vasopressors. Qualifiers: Hypotension type: idiopathic hypotension Qualified Code(s): I95.0 - Idiopathic hypotension (11) Liver lesion Current Visit: Yes Status: Chronic Assessment and plan: Described as cystic in imaging. Stable in size. Liver w/u pending. (12) Nausea Current Visit: Yes Status: Resolved (13) Pleural effusion Current Visit: Yes Status: Acute Assessment and plan: Pulmonology management (14) Atrial fibrillation Current Visit: Yes Status: Chronic Qualifiers: Atrial fibrillation type: chronic Qualified Code(s): I48.2 - Chronic atrial fibrillation - Time Spent With Patient Total time spent is greater than 50% in coordination of care (as documented) at patient's floor/unit and/or counseling patient: less than 15 minutes GI History of Present Illness - Data of Consult Patient: new to practice Consult date: 10/30/16 Requesting Physician: Mary Kay Virk - Consult Narrative Reason for consult: anemia, coagulopathy, elev lfts History of present illness: Ms. Linton is a 89 year old female with PMH of HTN, hypothyroidism, chronic afib on Eliquis, CHF. She presented to ED with generalized weakness. Patient has history of CHF with a recent increase in lasix dosing. She states that it had helped her symptomatically with her b/l LE edema and dyspnea. Denies any recent history of chest pain. Upon admission to the ED patient found to have NIYA, hypotension and coagulopathy. The patient's INR was 7.2 yesterday, down to 3.3 today with 4 units FFP infused. Patient appears to be mentating appropriately but does not recall any details of the recent events other than not feeling herself. Patient started on Dopamine in the ED. Remains hypotensive with MAPs in the upper 50's-60's. There was concern for cardiorenal sydrome, so echo was ordered. No previous echo on record at [facility]. She apparently sees someone in [facility] according to records. Current echo revealed EF at >60% with mild dilated RV that has normal function. She has moderate tricuspid regurg with poor coaptation of the tricuspid valve. Patient's troponins elevated at 0.09 but have trended downwards to 0.07. Patient has chronic thrombocytopenia and chronically elevated AST levels. Imaging reveals a large, stable liver cyst measuring 6.8 cm x 4.5 x 6.2. There is evidence of upper abdominal ascites on imaging. Her hgb initially 10.2, down to 8.1 and samuel to 9.4 after receiving 2 units PRBC. Lipase is slightly elevated , no evidence of pancreatitis on imaging. She has profound hypoalbuminemia. Diverticulosis, no itis on imaging. Patient examined at bedside, slightly difficult to understand, confused. From what I was able to ascertain from the patient (no family present), no GI symptoms at home. She denies bleeding from the bowel, no abdominal pain. She did have some blood around her lips, however, admits due to chapped lips. Medical chart indicates N/V at [facility], none currently. Colonoscopy: Yes, unk when or what results were per patient EGD: Unk. Past Med Surg Social Fam HX - Past Medical History Medical history: atrial fibrillation, hypertension, thyroid disease Psychiatric history: no psych history - Past Surgical History Surgical History: cholecystectomy, hysterectomy - Social History Smoking Status: Never smoker Smokeless Tobacco Status: No Alcohol use: none Drug use: none - Family History Mother Adopted: No Living Status: Age at : 79 Cause of : CVA Hx Family Cardiac Disorders: Yes Father Adopted: No Age: 85 Living Status: Cause of : atherosclerosis Hx Family Cardiac Disorders: Yes Hx Family Respiratory Disorders: Yes ROS unobtainable: due to mental status - Gastrointestinal Anticoagulation Use: Eliquis Gastrointestinal: Present: as per HPI - Constitutional Vitals: Temp Pulse Resp BP Pulse Ox 97.6 F 97 16 93/62 97 10/30/16 07:37 10/30/16 08:00 10/30/16 08:00 10/30/16 08:00 10/30/16 08:00 General appearance: Present: cooperative, A&O X 2 - Head Head exam: Present: atraumatic, normocephalic - Eye Eye exam: Present: normal appearance, sclera anicteric - ENT ENT exam: Present: mucous membranes dry Additional comments: dried blood on lips, lips are noticeably chapped. - Neck Neck exam general surgery: Present: normal inspection, trachea midline - Respiratory Respiratory exam: Present: CTAB - Cardiovascular Cardiovascular exam: Present: RRR, +S1, +S2 - GI/Abdominal GI/Abdominal exam: Present: normal bowel sounds, soft, no peritoneal signs - Rectal Rectal exam: Present: deferred - Extremities Exam Extremities exam: Present: pedal edema, warm - Neurological Exam Neurological exam: Present: alert - Psychiatric Psychiatric exam: Present: normal affect, normal mood - Skin Skin exam: Present: dry, intact, normal color, warm Results - Labs CBC & Chem 7: 10/30/16 05:10 10/30/16 05:10 Labs: Last Result Calcium 8.7 mg/dL (8.6-10.8) 10/30/16 05:10 Troponin I 0.09 ng/mL (0-0.03) H* 10/28/16 17:13 C-Reactive Protein 21 mg/L (Less than 5) H 10/28/16 04:40 Vitamin B12 1542 pg/mL (213-816) H 10/28/16 09:10 Folate 12.6 ng/mL (7.0-31.4) 10/28/16 09:10 Entire Visit Hgb 9.4 g/dL (11.5-15.4) L 10/30/16 05:10 Hct 27.6 % (35.3-44.9) L 10/30/16 05:10 PT 37.1 Seconds (9.4-12.1) H 10/30/16 05:10 Total Bilirubin 1.2 mg/dL (0.2-1.2) 10/30/16 05:10 AST 37 Units/L (5-34) H 10/30/16 05:10 ALT 28 Units/L (0-55) 10/30/16 05:10 Lipase 168 Units/L (8-78) H 10/27/16 20:35 Folate 12.6 ng/mL (7.0-31.4) 10/28/16 09:10 - ABG ABG results: PT/INR, D-dimer PT 37.1 Seconds (9.4-12.1) H 10/30/16 05:10 D-Dimer 283 ng/mLFEU (0-500) 10/29/16 09:10 - Impressions Impressions Chest X-Ray 10/29/16 04:00 IMPRESSION: 1. No lines or tubes. 2. Stable cardiomegaly. 3. Unchanged bibasilar opacities and bilateral effusions after accounting for differences in patient positioning. D/ / 10/29/2016 06:58:43 Aria Rodríguez MD / [facility] Interpreting Provider: Aria Rordíguez MD Abdomen/Pelvis CT 10/29/16 10:48 IMPRESSION: 1. Stable large bilateral pleural effusions with volume loss in the lung bases, right side greater than left. 2. Marked edema is noted along the abdominal wall, as well as bilateral lower extremities, asymmetric on the right. 3. Colonic diverticulosis. 4. Atherosclerotic disease. 5. Large cystic lesion noted in the caudate lobe of the liver, stable. D/ / 10/29/2016 12:50:04 Erick Salinas MD / [facility] Interpreting Provider: Erick Salinas MD Chest CT 10/29/16 10:48 IMPRESSION: 1. Small left pleural effusion and moderate to large right pleural effusion, without evidence of hemothorax. 2. Coronary atherosclerosis. 3. Mild diffuse anasarca. D/ / 10/29/2016 13:08:44 Jose Brandon MD / [facility] Interpreting Provider: Jose Brandon MD Consult Discharge Plan - Plan Referrals: Laurent Conrad MD [Primary Care Provider] - <Tushar Collins - Last Filed: 10/30/16 15:03> Date of Encounter: 10/30/16 Time of Encounter: 15:00 - Time Spent With Patient Total time spent is greater than 50% in coordination of care (as documented) at patient's floor/unit and/or counseling patient: GI History of Present Illness - Data of Consult Requesting Physician: Mary Kay Virk - Consult Narrative History of present illness: Ms. Linton is a 89 year old female - Constitutional Vitals: Temp Pulse Resp BP Pulse Ox 97.5 F L 89 22 101/65 95 10/30/16 12:51 10/30/16 14:00 10/30/16 14:00 10/30/16 14:00 10/30/16 14:00 Results - Labs CBC & Chem 7: 10/30/16 05:10 10/30/16 05:10 Labs: Last Result Calcium 8.7 mg/dL (8.6-10.8) 10/30/16 05:10 Ferritin 373 ng/ml (5-204) H 10/30/16 09:50 Troponin I 0.09 ng/mL (0-0.03) H* 10/28/16 17:13 C-Reactive Protein 21 mg/L (Less than 5) H 10/28/16 04:40 Vitamin B12 1542 pg/mL (213-816) H 10/28/16 09:10 Folate 12.6 ng/mL (7.0-31.4) 10/28/16 09:10 Entire Visit Hgb 9.4 g/dL (11.5-15.4) L 10/30/16 05:10 Hct 27.6 % (35.3-44.9) L 10/30/16 05:10 PT 37.1 Seconds (9.4-12.1) H 10/30/16 05:10 Ferritin 373 ng/ml (5-204) H 10/30/16 09:50 Total Bilirubin 1.2 mg/dL (0.2-1.2) 10/30/16 05:10 AST 37 Units/L (5-34) H 10/30/16 05:10 ALT 28 Units/L (0-55) 10/30/16 05:10 Lipase 168 Units/L (8-78) H 10/27/16 20:35 Folate 12.6 ng/mL (7.0-31.4) 10/28/16 09:10 - ABG ABG results: PT/INR, D-dimer PT 37.1 Seconds (9.4-12.1) H 10/30/16 05:10 D-Dimer 283 ng/mLFEU (0-500) 10/29/16 09:10 - Impressions Impressions Chest X-Ray 10/29/16 04:00 IMPRESSION: 1. No lines or tubes. 2. Stable cardiomegaly. 3. Unchanged bibasilar opacities and bilateral effusions after accounting for differences in patient positioning. D/ / 10/29/2016 06:58:43 Aria Rodríguez MD / [facility] Interpreting Provider: Aria Rodríguez MD - Attending Attestation I examined this patient and my medical decision-making was reviewed with the TESTING COORDINATOR/PA/Advanced Practice Nurse/Resident Physician. I agree with the documented findings, disposition and treatment plan as described except to the extent set forth below. Patient currently DNR comfort care. We will await the final decision about how aggressive we want to be. The scope for now as he No scopes for now
[2016-10-30] MEDS: Pantoprazole 40 MG VIAL IVP SCH (09:22)
[2016-10-30] MEDS: Levothyroxine Sodium 100 MCG VIAL IVP SCH (09:22)
[2016-10-30] MEDS: Thiamine (B-1) 100 MG in D5% in Water 50 ML IVPB SCH (09:22)
--- NOTE | 2016-10-30 09:40 | Nephrology Progress Note ---
Date of Encounter: 10/30/16 Time of Encounter: 09:20 - Assessment and Plan (1) Acute renal failure Current Visit: Yes Status: Acute NIYA in setting hypotension and volume depletion. Renal fct slowly improving. Urine output 1225cc. May need higher preload, may benefit from IV fluids to wean dopamine. Will always have edema. Continue to monitor. Qualifiers: Acute renal failure type: unspecified Qualified Code(s): N17.9 - Acute kidney failure, unspecified Subjective Principal diagnosis: Hypovolemic shock Interval history: Awake. Dopamine being weaned. No new complaints. Objective - Vital Signs Vital signs: Vital Signs Temp Pulse Resp BP Pulse Ox 10/30/16 09:00 98 18 88/46 93 L 10/30/16 08:00 97 16 93/62 97 10/30/16 07:37 97.6 F 10/30/16 07:00 93 20 98/65 98 10/30/16 06:00 108 25 108/82 99 10/30/16 05:12 105 19 103/73 98 10/30/16 04:19 97.8 F 10/30/16 04:10 114 19 131/94 97 10/30/16 03:00 113 22 124/78 98 10/30/16 02:40 97.6 F 114 22 124/78 98 10/30/16 02:00 119 21 108/80 98 10/30/16 01:15 121 23 101/90 97 10/30/16 01:00 98.0 F 129 20 79/60 97 10/30/16 00:45 98.0 F 94 20 115/68 97 10/30/16 00:31 120 22 114/84 100 10/30/16 00:15 96.3 F L 10/30/16 00:00 106 20 117/84 97 10/29/16 23:31 97.4 F L 112 19 90/65 100 10/29/16 23:08 97.8 F 111 19 92/66 100 10/29/16 23:00 110 20 122/94 100 10/29/16 22:48 97.8 F 109 19 111/71 100 10/29/16 22:00 118 16 98/49 100 10/29/16 21:39 96.8 F L 10/29/16 21:31 97.6 F 112 20 96/63 100 10/29/16 21:18 108 18 100/41 99 10/29/16 21:16 97.6 F 108 18 100/41 99 10/29/16 21:01 97.6 F 117 19 108/54 100 10/29/16 20:03 97.7 F 113 19 109/38 99 10/29/16 20:01 97.7 F 118 19 109/38 99 10/29/16 19:46 97.8 F 107 19 107/33 98 10/29/16 19:00 103 19 78/46 98 10/29/16 18:25 96.8 F L 97 22 92/53 100 10/29/16 18:00 104 20 115/70 100 10/29/16 16:54 97.4 F L 100 20 101/61 100 10/29/16 16:53 100 20 101/61 100 10/29/16 16:39 97.5 F L 20 82/59 100 10/29/16 16:33 97.5 F L 100 16 100 10/29/16 16:00 97.5 F L 95 18 82/62 100 10/29/16 15:45 97.5 F L 10/29/16 15:00 101 18 82/50 100 10/29/16 14:01 97.4 F L 102 18 81/56 100 10/29/16 13:56 99 18 101/50 100 10/29/16 13:47 97.4 F L 100 18 101/50 100 10/29/16 13:00 100 18 104/59 100 10/29/16 12:00 97.5 F L 100 18 98/57 98 10/29/16 11:37 99 10/29/16 10:49 99 18 98/61 99 10/29/16 10:00 100 18 93/52 99 Intake and Output 10/29/16 10/30/16 10/30/16 23:59 07:59 15:59 Intake Total 1545.5 / 1545.5 811.3 / 811.3 Output Total 225 / 225 700 / 700 Balance 1320.5 / 1320.5 111.3 / 111.3 Intake: IV Fluids 270.5 / 270.5 164.3 / 164.3 DOPamine Premix (400mg/ 69 / 69 164.3 / 164.3 250mL D5W) 400 mg In 250 ml @ 5 MCG/KG/MIN 13.097 mls/hr IVC .Q19H6M [facility] Rx #:[id number] AquaMephyton 5 MG In 0.9 50.5 / 50.5 % Sodium Chloride 50 ML @ 100 mls/hr IVPB ONCE ONE Rx#:[id number] Zosyn 3.375 GM In 100 / 100 Dextrose 5% (Minibag+) 100 ML 100 ML @ 25 mls/hr IVPB Q12HR [facility] Rx#: [id number] Vitamin B-1 100 MG In 51 / 51 Dextrose 5% 50 ML @ 50 mls/hr IVPB DAILY [facility] Rx# :[id number] Blood Product 1275 / 1275 647 / 647 Plasma Unit 250 / 250 [id number] Plasma Unit 315 / 315 [id number] Plasma Unit 405 / 405 [id number] Plasma Unit 305 / 305 [id number] Rbcs Leuko Poor As-1 375 / 375 Unit [id number] Rbcs Leuko Poor As-1 0 / 0 272 / 272 Unit [id number] Output: Catheter 225 / 225 700 / 700 Other: Blood Glucose* 78 76 - General Appearance General appearance: Present: well-developed, well-nourished, appears started age EENT: Present: mucous membranes moist Neck: Present: no JVD Respiratory: Present: clear Cardiology: Present: regular rate, regular rhythm Additional Comments: 2-3+ pitting edema Gastrointestinal: Present: normoactive bowel sounds, no tenderness Integumentary: Present: warm and dry Neurologic: Present: alert and oriented x3 Psychiatric: Present: mood/affect appropriate, cooperative - Lab 10/30/16 05:10 10/30/16 05:10 Most recent lab results Calcium 8.7 mg/dL (8.6-10.8) 10/30/16 05:10 Phosphorus 6.7 mg/dL (2.3-4.7) H 10/28/16 04:40 Magnesium 2.0 mg/dL (1.6-2.6) 10/28/16 04:40 Consult Discharge Plan - Plan Referrals: Laurent Conrad MD [Primary Care Provider] -
[2016-10-30] MEDS ORDERED: MVI, adult with vitamin K 10 ML in 0.9 % Sodium Chloride 1,000 ML IVC ONE (11:17)
--- NOTE | 2016-10-30 11:38 | Pulmonology Progress Note ---
<ChristianoGonzález Ramirez - Last Filed: 10/30/16 13:02> Date of Encounter: 10/30/16 Time of Encounter: 11:38 Assessment and Plan (1) Hypovolemic shock Current Visit: Yes Status: Suspected Pt. has been weaned off dopamine. MAP's remaining 60-70 Received 2 units PRBC yesterday and 4 units FFP Hgb: 12.2 on 10/27/16, 10.1 on 10/28/16, 8.1 on 10/29/16 Hgb: 9.4 s/p 2 units PRBC Suspicious for GI bleed. GI consulted. Cannot scope at this time d/t elevated INR INR: 6.0 10/28/16 INR: 7.2 10/29/16 INR: 3.3 10/30/16 s/p 4 units FFP and Vit K 2 more units FFP ordered Recheck INR in am DIC panel: Fibrinogen: 239, D-Dimer 283, Plt: 92. Likely not DIC. Occult stool positive Transfer out of ICU today. (2) NIYA (acute kidney injury) Current Visit: Yes Status: Acute likely 2/2 hypovolemia from possible GI bleed baseline: GFR: >60, Scr: 0.7, BUN: 15 GFR 17. slowly trending up Scr: 2.61. Slowly trending down BUN: 108. Slowly trending up nephro on board. Appreciate their recommendations UOP 2.8 L this admission Net positive 5.4 L since admission IVF stopped at this time as pt is receiving banana bag + blood products. Pt. has significant anasarca and recent CXR revealed Small left pleural effusion and moderate to large right pleural effusion so gently hydration is warranted. (3) Malnutrition due to starvation Current Visit: Yes Status: Chronic Per pt. and family she hasn't been able to eat well without vomiting for the past few months PT/INR elevated, albumin low, thrombocytopenia. Liver enzymes normal. Nutrition has been consulted. Appreciate their input. Speech did a swallow eval, which patient failed. She was unable to initiate swallow reflex. Banana bag ordered. Palliative on board. Will discuss goals of care further with family. (4) Failure to thrive Current Visit: Yes Status: Acute Several months of malnutrition Nutrition consulted Failed swallow study Qualifiers: Failure to thrive age range: in adult Qualified Code(s): R62.7 - Adult failure to thrive (5) Anasarca Current Visit: Yes Status: Acute Continued pitting edeme in LE Edema appreciated in abdomen, face. Also noted on previous CT abd/pelvis Believe this may be 2/2 malnutrition at this time. Pt. has been vomiting and not eating well for some time Albumin remains low, PT/INR elevated. UOP dark today. suspicious for ATN. Will get urine protein (6) Elevated lipase Current Visit: Yes Status: Acute currently stable (7) Hyperkalemia Current Visit: Yes Status: Chronic K+ 4.3 today continue to monitor (8) Hypoalbuminemia Current Visit: Yes Status: Acute suspicious to be 2/2 malnutrition 2.8 today s/p 50 grams albumin 10/28/16 continue to monitor (9) Liver lesion Current Visit: Yes Status: Chronic Liver u/s revealed 6.8 cm mildly complicated cyst with mild LUQ ascites (10) Pleural effusion Current Visit: Yes Status: Acute CXR this am (10/29/16) revealed worsening of right sided haziness, possibly d/t volume overload will d/c IVF at this time Likely not PNA or infectious. No indications for Abx at this time. All antibiotics discontinued. (11) Atrial fibrillation Current Visit: Yes Status: Chronic chronic stable continue to hold eliquis stop heparin also d/t possible GI bleed Qualifiers: Atrial fibrillation type: chronic Qualified Code(s): I48.2 - Chronic atrial fibrillation (12) Hypothyroidism Current Visit: Yes Status: Chronic chronic stable Qualifiers: Hypothyroidism type: unspecified Qualified Code(s): E03.9 - Hypothyroidism , unspecified (13) DVT prophylaxis Current Visit: Yes Status: Acute INR currently 3.3 no DVT prophylaxis indicated as she is physiologically anticoagulated Subjective Principal diagnosis: Hypovolemic shock Interval history: Patient seen and examined. Continues to have extreme fatigue. GI consulted but unable to scope her until INR normalizes. Pt. received 2 units PRBC and 4 units FFP. INR down to 3.4 from 6 today. After further interview with patient and family it appears patient has been suffering from malnutrition for quite some time. At this time she has been weaned off dopamine and her MAP is stable in the 60-70's. Pt. to be transferred out of the ICU today. Objective PUL Vital signs: Last Vital Signs Temp 97.6 F 10/30/16 07:37 Pulse 81 10/30/16 11:15 Resp 18 10/30/16 11:00 BP 93/59 10/30/16 11:00 Pulse Ox 97 10/30/16 11:00 General appearance: lethargic Eyes: injected ENT: oropharynx dry Effort: other (weak/poor effort) Auscultation: bilateral: diminished breath sounds Cardiovascular: irregular rhythm Gastrointestinal: normoactive bowel sounds Extremities: no cyanosis, anasarca unable to assess due to mental status (A&O x 3, but confusion is waxing and waning) Results - Laboratory Findings CBC and BMP: 10/30/16 05:10 10/30/16 05:10 PT/INR, D-dimer PT 37.1 Seconds (9.4-12.1) H 10/30/16 05:10 D-Dimer 283 ng/mLFEU (0-500) 10/29/16 09:10 Abnormal lab findings: Abnormal lab results RBC 3.19 M/mcL (3.82-4.97) L 10/30/16 05:10 Hgb 9.4 g/dL (11.5-15.4) L 10/30/16 05:10 Hct 27.6 % (35.3-44.9) L 10/30/16 05:10 RDW 15.1 % (11.5-14.5) H 10/30/16 05:10 Plt Count 75 K/mcL (140-400) L 10/30/16 05:10 Nucleated RBCs/100 WBC 0.7 /100 WBC (0) H 10/30/16 05:10 Immature Plt Fraction 7.3 % (1.1-6.1) H 10/30/16 05:10 PT 37.1 Seconds (9.4-12.1) H 10/30/16 05:10 APTT 153.7 Seconds (26.0-36.0) H* 10/29/16 09:10 Heparin Anti-Xa, Unfract 0.06 IU/mL (0.30-0.70) L 10/29/16 09:10 BUN 108 mg/dL (7-20) H 10/30/16 05:10 Creatinine 2.61 mg/dL (0.57-1.11) H 10/30/16 05:10 Est GFR ( Amer) 21 (> 60) L 10/30/16 05:10 Est GFR (Non-Af Amer) 17 (> 60) L 10/30/16 05:10 BUN/Creatinine Ratio 41 (6-26) H 10/30/16 05:10 Calculated Osmolality 331 (280-300) H 10/30/16 05:10 Phosphorus 6.7 mg/dL (2.3-4.7) H 10/28/16 04:40 AST 37 Units/L (5-34) H 10/30/16 05:10 Troponin I 0.09 ng/mL (0-0.03) H* 10/28/16 17:13 C-Reactive Protein 21 mg/L (Less than 5) H 10/28/16 04:40 B-Natriuretic Peptide 684 pg/mL (0-100) H 10/27/16 20:35 Serum Total Protein 5.8 g/dL (6.0-8.3) L D 10/30/16 05:10 Albumin 2.8 g/dL (3.5-5.0) L 10/30/16 05:10 Albumin/Globulin Ratio 0.9 (1.1-2.2) L 10/30/16 05:10 Lipase 168 Units/L (8-78) H 10/27/16 20:35 Vitamin B12 1542 pg/mL (213-816) H 10/28/16 09:10 Urine Clarity Cloudy (Clear) A 10/27/16 20:46 Urine Microscopic RBC 3-5 per hpf (0-3) H 10/27/16 20:46 Urine Microscopic WBC 3-5 per hpf (0-3) H 10/27/16 20:46 Ur Squamous Epith Cells Many per lpf (None-Few) H 10/27/16 20:46 - Microbiology Findings Microbiology Findings: Microbiology, Last 48 Hours 10/28/16 05:00 Blood Culture - Preliminary Peripheral Venipuncture No growth. - Clinical Findings Intake & Output: Intake & Output 10/29/16 10/30/16 10/30/16 23:59 07:59 15:59 Intake Total 1545.5 / 1545.5 811.3 / 811.3 Output Total 225 / 225 700 / 700 Balance 1320.5 / 1320.5 111.3 / 111.3 Consult Discharge Plan - Plan Referrals: Laurent Conrad MD [Primary Care Provider] - <Mohinder Ballesteros - Last Filed: 10/30/16 17:03> Date of Encounter: 10/30/16 Objective PUL Vital signs: Last Vital Signs Temp 97.6 F 10/30/16 16:22 Pulse 85 10/30/16 16:22 Resp 22 10/30/16 16:22 BP 96/75 10/30/16 16:22 Pulse Ox 95 10/30/16 16:22 Results - Laboratory Findings CBC and BMP: 10/30/16 05:10 10/30/16 05:10 PT/INR, D-dimer PT 37.1 Seconds (9.4-12.1) H 10/30/16 05:10 D-Dimer 283 ng/mLFEU (0-500) 10/29/16 09:10 Abnormal lab findings: Abnormal lab results RBC 3.19 M/mcL (3.82-4.97) L 10/30/16 05:10 Hgb 9.4 g/dL (11.5-15.4) L 10/30/16 05:10 Hct 27.6 % (35.3-44.9) L 10/30/16 05:10 RDW 15.1 % (11.5-14.5) H 10/30/16 05:10 Plt Count 75 K/mcL (140-400) L 10/30/16 05:10 Nucleated RBCs/100 WBC 0.7 /100 WBC (0) H 10/30/16 05:10 Immature Plt Fraction 7.3 % (1.1-6.1) H 10/30/16 05:10 PT 37.1 Seconds (9.4-12.1) H 10/30/16 05:10 APTT 153.7 Seconds (26.0-36.0) H* 10/29/16 09:10 Heparin Anti-Xa, Unfract 0.06 IU/mL (0.30-0.70) L 10/29/16 09:10 BUN 108 mg/dL (7-20) H 10/30/16 05:10 Creatinine 2.61 mg/dL (0.57-1.11) H 10/30/16 05:10 Est GFR ( Amer) 21 (> 60) L 10/30/16 05:10 Est GFR (Non-Af Amer) 17 (> 60) L 10/30/16 05:10 BUN/Creatinine Ratio 41 (6-26) H 10/30/16 05:10 Calculated Osmolality 331 (280-300) H 10/30/16 05:10 Phosphorus 6.7 mg/dL (2.3-4.7) H 10/28/16 04:40 Ferritin 373 ng/ml (5-204) H 10/30/16 09:50 AST 37 Units/L (5-34) H 10/30/16 05:10 Troponin I 0.09 ng/mL (0-0.03) H* 10/28/16 17:13 C-Reactive Protein 21 mg/L (Less than 5) H 10/28/16 04:40 B-Natriuretic Peptide 684 pg/mL (0-100) H 10/27/16 20:35 Serum Total Protein 5.8 g/dL (6.0-8.3) L D 10/30/16 05:10 Albumin 2.8 g/dL (3.5-5.0) L 10/30/16 05:10 Albumin/Globulin Ratio 0.9 (1.1-2.2) L 10/30/16 05:10 Lipase 168 Units/L (8-78) H 10/27/16 20:35 Vitamin B12 1542 pg/mL (213-816) H 10/28/16 09:10 Urine Clarity Cloudy (Clear) A 10/27/16 20:46 Urine Microscopic RBC 3-5 per hpf (0-3) H 10/27/16 20:46 Urine Microscopic WBC 3-5 per hpf (0-3) H 10/27/16 20:46 Ur Squamous Epith Cells Many per lpf (None-Few) H 10/27/16 20:46 Urine Total Protein 41 mg/dL (1-14) H 10/30/16 09:40 - Microbiology Findings Microbiology Findings: Microbiology, Last 48 Hours 10/28/16 05:00 Blood Culture - Preliminary Peripheral Venipuncture No growth. - Clinical Findings Intake & Output: Intake & Output 10/30/16 10/30/16 10/30/16 07:59 15:59 23:59 Intake Total 811.3 / 811.3 67 / 67 300 / 300 Output Total 700 / 700 200 / 200 Balance 111.3 / 111.3 -133 / -133 300 / 300 - Attending Attestation I examined this patient and my medical decision-making was reviewed with the RECREATIONAL VEHICLE REPAIRER/PA/Advanced Practice Nurse/Resident Physician. I agree with the documented findings, disposition and treatment plan as described except to the extent set forth below. Patient seen and examined. Labs, radiology, chart personally reviewed. Agree with resident's history and physical, assessment, plan with following comments: STATISTICAL PROGRAMMER: Patient follows commands, Pulmonary: Acceptable oxygenation and ventilation Cardiovascular: Relatively stable and to stop dopamine drip and map goal of 55- 60 mmHg GI: Nutrition per dietary and GI prophylaxis per routine. This is a big issue and palliative care to follow-up with the family Heme: DVT prophylaxis per routine. Remain coagulopathic and transfuse FFP and vitamin K RenaStop antibioticsl; urine out put and renal funtion reviewed Endorcine: blood glucose is monitored Lines: all lines checked and no evidence of infections Skin: skin care to prevent pressure ulcers per nursing routine care prognosis is poor and transfer patient to the floor
[2016-10-30] MEDS ORDERED: Naloxone 0.4 MG/ML INJ IVP PRN (12:09)
[2016-10-30] MEDS ORDERED: *HR* Dextrose 50 % in Water (Syg) 50 ML SYRINGE IVP PRN (12:09)
[2016-10-30] MEDS ORDERED: Dextrose Gel 15 GM PO PRN ×2 (12:09)
[2016-10-30] MEDS ORDERED: Ondansetron 4 MG/2 ML VIAL IVP PRN (12:09)
[2016-10-30] MEDS ORDERED: D5% in Water 1,000 ML IV PRN (12:09)
[2016-10-30] MEDS: Nystatin SUSP 5 ML UD.LIQ BC SCH ×3 (12:19→21:50)
[2016-10-30] MEDS ORDERED: 0.9 % Sodium Chloride 250 ML ONE (12:26)
[2016-10-30] MEDS ORDERED: Nystatin SUSP 5 ML UD.LIQ BC SCH (13:00)
--- NOTE | 2016-10-30 15:21 | Palliative Progress Note ---
Date of Encounter: 10/30/16 Time of Encounter: 13:00 - Assessment and plan (1) Nausea Current Visit: Yes Status: Resolved Assessment and plan: Continue Zofran PRN. Monitor (2) Constipation Current Visit: Yes Status: Acute Assessment and plan: Continue Colace and monitor BM's Qualifiers: Constipation type: unspecified constipation type Qualified Code(s): K59.00 - Constipation, unspecified (3) Thrush, oral Current Visit: Yes Status: Acute Assessment and plan: Has began on Nystatin mouthwash. Monitor (4) Counseling regarding advanced care planning and goals of care Current Visit: Yes Status: Acute Assessment and plan: Failed swallow eval today. Patient would most likely pull out temporary feeding tube. Difficulty with fluid overload and with lab abnormalities, not good candidate for TPN. Confusion has increased since yesterday. Will re- discuss goals of care with family. KRISTAL Hart coming in around 4-430 today and will meet with her then. (5) Acute renal failure Current Visit: Yes Status: Acute Qualifiers: Acute renal failure type: unspecified Qualified Code(s): N17.9 - Acute kidney failure, unspecified (6) Pleural effusion Current Visit: Yes Status: Acute (7) Atrial fibrillation Current Visit: Yes Status: Chronic Qualifiers: Atrial fibrillation type: chronic Qualified Code(s): I48.2 - Chronic atrial fibrillation - Time Spent With Patient Total time spent is greater than 50% in coordination of care (as documented) at patient's floor/unit and/or counseling patient: - Subjective Interval history: Patient awake but pleasantly confused. No family present. C/o some abd pain, but cannot describe it. Also states feels short of breath. Oxygen re-applied. FFP infusing at this time. Consultations from GI and nephrology reviewed. INR remains at 3.3 Hgb stable. - Constitutional Vitals: Abnormal lab results RBC 3.19 M/mcL (3.82-4.97) L 10/30/16 05:10 Hgb 9.4 g/dL (11.5-15.4) L 10/30/16 05:10 Hct 27.6 % (35.3-44.9) L 10/30/16 05:10 RDW 15.1 % (11.5-14.5) H 10/30/16 05:10 Plt Count 75 K/mcL (140-400) L 10/30/16 05:10 Nucleated RBCs/100 WBC 0.7 /100 WBC (0) H 10/30/16 05:10 Immature Plt Fraction 7.3 % (1.1-6.1) H 10/30/16 05:10 PT 37.1 Seconds (9.4-12.1) H 10/30/16 05:10 APTT 153.7 Seconds (26.0-36.0) H* 10/29/16 09:10 Heparin Anti-Xa, Unfract 0.06 IU/mL (0.30-0.70) L 10/29/16 09:10 BUN 108 mg/dL (7-20) H 10/30/16 05:10 Creatinine 2.61 mg/dL (0.57-1.11) H 10/30/16 05:10 Est GFR ( Amer) 21 (> 60) L 10/30/16 05:10 Est GFR (Non-Af Amer) 17 (> 60) L 10/30/16 05:10 BUN/Creatinine Ratio 41 (6-26) H 10/30/16 05:10 Calculated Osmolality 331 (280-300) H 10/30/16 05:10 Phosphorus 6.7 mg/dL (2.3-4.7) H 10/28/16 04:40 Ferritin 373 ng/ml (5-204) H 10/30/16 09:50 AST 37 Units/L (5-34) H 10/30/16 05:10 Troponin I 0.09 ng/mL (0-0.03) H* 10/28/16 17:13 C-Reactive Protein 21 mg/L (Less than 5) H 10/28/16 04:40 B-Natriuretic Peptide 684 pg/mL (0-100) H 10/27/16 20:35 Serum Total Protein 5.8 g/dL (6.0-8.3) L D 10/30/16 05:10 Albumin 2.8 g/dL (3.5-5.0) L 10/30/16 05:10 Albumin/Globulin Ratio 0.9 (1.1-2.2) L 10/30/16 05:10 Lipase 168 Units/L (8-78) H 10/27/16 20:35 Vitamin B12 1542 pg/mL (213-816) H 10/28/16 09:10 Urine Clarity Cloudy (Clear) A 10/27/16 20:46 Urine Microscopic RBC 3-5 per hpf (0-3) H 10/27/16 20:46 Urine Microscopic WBC 3-5 per hpf (0-3) H 10/27/16 20:46 Ur Squamous Epith Cells Many per lpf (None-Few) H 10/27/16 20:46 Urine Total Protein 41 mg/dL (1-14) H 10/30/16 09:40 General appearance: Present: no acute distress - Respiratory Respiratory exam: Present: decreased breath sounds, CTAB - Cardiovascular Cardiovascular exam: Present: irregular rhythm - GI/Abdominal GI/Abdominal exam: Present: distended, hypoactive bowel sounds, soft - Extremities Exam Additional comments: 3-4 + edema bilateral lower extremities - Neurological Exam Neurological exam: Present: alert Additional comments: Oriented to name only. - Skin Skin exam: Present: dry, pallor, warm Palliative Quality Palliative Quality: Screen for Code Status: Yes, Screen for Goals of Care: Yes, Screen for Pain: Yes, If Pain Regimen Started, Initiate Bowel Regimen: NA, Screen for Nausea/Vomitting: Yes Code Status: 10/28/16 02:48 Resuscitation Status: Active [RES] Routine Comment: Resuscitation Status: Full Code 10/28/16 16:20 CODE [Resuscitation Status: Active] [RES] Routine Comment: Resuscitation Status: DNR-Comfort Care-Arrest 10/29/16 13:52 DNR [Resuscitation Status: Active] [RES] Routine Comment: Resuscitation Status: [id number] - Labs CBC & Chem 7: 10/30/16 05:10 10/30/16 05:10 Labs: Laboratory Results - last 24 hr 10/29/16 10/29/16 10/29/16 04:12 07:21 11:20 WBC RBC Hgb Hct MCV MCH MCHC RDW Plt Count MPV Immature Gran % Seg Neutrophils % Lymphocytes % Monocytes % Eosinophils % Basophils % Neutrophils # Lymphocytes # Monocytes # Eosinophils # Basophils # Nucleated RBCs/100 WBC Immature Plt Fraction PT INR Sodium Potassium Chloride Carbon Dioxide BUN Creatinine Est GFR ( Amer) Est GFR (Non-Af Amer) BUN/Creatinine Ratio Glucose POC Glucose 76 73 Calculated Osmolality Calcium Ferritin Total Bilirubin AST ALT Alkaline Phosphatase Serum Total Protein Albumin Globulin Albumin/Globulin Ratio Urine Total Protein Blood Type A POSITIVE Antibody Screen NEGATIVE Crossmatch See Detail 10/29/16 10/29/16 10/29/16 11:42 15:23 16:46 WBC RBC Hgb Hct MCV MCH MCHC RDW Plt Count MPV Immature Gran % Seg Neutrophils % Lymphocytes % Monocytes % Eosinophils % Basophils % Neutrophils # Lymphocytes # Monocytes # Eosinophils # Basophils # Nucleated RBCs/100 WBC Immature Plt Fraction PT INR Sodium Potassium Chloride Carbon Dioxide BUN Creatinine Est GFR ( Amer) Est GFR (Non-Af Amer) BUN/Creatinine Ratio Glucose POC Glucose 76 67 72 Calculated Osmolality Calcium Ferritin Total Bilirubin AST ALT Alkaline Phosphatase Serum Total Protein Albumin Globulin Albumin/Globulin Ratio Urine Total Protein Blood Type Antibody Screen Crossmatch 10/29/16 10/30/16 10/30/16 20:12 00:01 05:10 WBC 6.8 RBC 3.19 L Hgb 9.4 L Hct 27.6 L MCV 86.5 MCH 29.5 MCHC 34.1 RDW 15.1 H Plt Count 75 L MPV 11.9 Immature Gran % 0.7 Seg Neutrophils % 66.6 Lymphocytes % 16.5 Monocytes % 14.9 Eosinophils % 1.0 Basophils % 0.3 Neutrophils # 4.5 Lymphocytes # 1.1 Monocytes # 1.0 Eosinophils # 0.1 Basophils # 0.0 Nucleated RBCs/100 WBC 0.7 H Immature Plt Fraction 7.3 H PT INR Sodium Potassium Chloride Carbon Dioxide BUN Creatinine Est GFR ( Amer) Est GFR (Non-Af Amer) BUN/Creatinine Ratio Glucose POC Glucose 78 78 Calculated Osmolality Calcium Ferritin Total Bilirubin AST ALT Alkaline Phosphatase Serum Total Protein Albumin Globulin Albumin/Globulin Ratio Urine Total Protein Blood Type Antibody Screen Crossmatch 10/30/16 10/30/16 10/30/16 05:10 05:10 09:40 WBC RBC Hgb Hct MCV MCH MCHC RDW Plt Count MPV Immature Gran % Seg Neutrophils % Lymphocytes % Monocytes % Eosinophils % Basophils % Neutrophils # Lymphocytes # Monocytes # Eosinophils # Basophils # Nucleated RBCs/100 WBC Immature Plt Fraction PT 37.1 H INR 3.3 Sodium 144 Potassium 4.3 Chloride 109 Carbon Dioxide 24 BUN 108 H Creatinine 2.61 H Est GFR ( Amer) 21 L Est GFR (Non-Af Amer) 17 L BUN/Creatinine Ratio 41 H Glucose 79 POC Glucose Calculated Osmolality 331 H Calcium 8.7 Ferritin Total Bilirubin 1.2 AST 37 H ALT 28 Alkaline Phosphatase 93 Serum Total Protein 5.8 L D Albumin 2.8 L Globulin 3.0 Albumin/Globulin Ratio 0.9 L Urine Total Protein 41 H Blood Type Antibody Screen Crossmatch 10/30/16 09:50 WBC RBC Hgb Hct MCV MCH MCHC RDW Plt Count MPV Immature Gran % Seg Neutrophils % Lymphocytes % Monocytes % Eosinophils % Basophils % Neutrophils # Lymphocytes # Monocytes # Eosinophils # Basophils # Nucleated RBCs/100 WBC Immature Plt Fraction PT INR Sodium Potassium Chloride Carbon Dioxide BUN Creatinine Est GFR ( Amer) Est GFR (Non-Af Amer) BUN/Creatinine Ratio Glucose POC Glucose Calculated Osmolality Calcium Ferritin 373 H Total Bilirubin AST ALT Alkaline Phosphatase Serum Total Protein Albumin Globulin Albumin/Globulin Ratio Urine Total Protein Blood Type Antibody Screen Crossmatch - Impressions Impressions Chest X-Ray 10/29/16 04:00 IMPRESSION: 1. No lines or tubes. 2. Stable cardiomegaly. 3. Unchanged bibasilar opacities and bilateral effusions after accounting for differences in patient positioning. D/ / 10/29/2016 06:58:43 Aria Rodríguez MD / [email or web address] Interpreting Provider: Aria Rodríguez MD - ABG Interpretation ABG results: PT/INR, D-dimer PT 37.1 Seconds (9.4-12.1) H 10/30/16 05:10 D-Dimer 283 ng/mLFEU (0-500) 10/29/16 09:10 Consult Discharge Plan - Plan Referrals: Laurent Conrad MD [Primary Care Provider] -
--- NOTE | 2016-10-30 16:27 | Event Note ---
Date of Encounter: 10/30/16 Time of Encounter: 16:30 Discussion with son Bryson at bedside, and daughters Tanner (POA) and Flor over the phone. Discussed current clinical status and goals of care. They do not desire any artificial feeding. They would like to continue supportive care over the next few days with IV fluids, treatment of thrush, and speech therapy. If she does not improve by Thursday, they would desire to transition to ECF with hospice care. Will continue to follow closely.
[2016-10-31] MEDS: Nystatin SUSP 5 ML UD.LIQ BC SCH ×3 (08:30→17:10)
[2016-10-31] MEDS: Pantoprazole 40 MG VIAL IVP SCH (08:32)
[2016-10-31] MEDS: Levothyroxine Sodium 100 MCG VIAL IVP SCH (08:33)
[2016-10-31 12:29] LABS: Hepatitis A Antibody IgM Nonreactive (Nonreactive); Hepatitis B Core IgM Nonreactive (Nonreactive); Hepatitis B Surface Antigen Nonreactive (Nonreactive); Hepatitis C Virus Antibody Nonreactive (Nonreactive)
[2016-10-31] MEDS ORDERED: Fluconazole 200 MG/100 ML 200 MG/100 ML BAG IVPB ONE (14:30)
--- NOTE | 2016-10-31 14:34 | Palliative Progress Note ---
Date of Encounter: 10/31/16 Time of Encounter: 14:00 - Assessment and plan (1) Nausea Current Visit: Yes Status: Resolved Assessment and plan: Continue Zofran and monitor (2) Constipation Current Visit: Yes Status: Acute Qualifiers: Constipation type: unspecified constipation type Qualified Code(s): K59.00 - Constipation, unspecified (3) Thrush, oral Current Visit: Yes Status: Acute Assessment and plan: Patient has been unable to take Nystatin. D/ W Dr. Ling and pharmacy re: dosing of Diflucan. Will give 200 mg today and 100 daily to see if this improves thrush and swallowing (4) Counseling regarding advanced care planning and goals of care Current Visit: Yes Status: Acute Assessment and plan: D/W [facility] this afternoon. They desire to continue treatment of thrush and speech therapy to see if she can improve oral intake. If not, they do not desire artificial feeding and will most likely transition back to ECF with hospice care. They are still hopeful that with supportive care she will improve, but understand she is very weak and may not do well. (5) Acute renal failure Current Visit: Yes Status: Acute Qualifiers: Acute renal failure type: unspecified Qualified Code(s): N17.9 - Acute kidney failure, unspecified (6) Pleural effusion Current Visit: Yes Status: Acute (7) Atrial fibrillation Current Visit: Yes Status: Chronic Qualifiers: Atrial fibrillation type: chronic Qualified Code(s): I48.2 - Chronic atrial fibrillation - Time Spent With Patient Total time spent is greater than 50% in coordination of care (as documented) at patient's floor/unit and/or counseling patient: 25 - 35 minutes - Subjective Interval history: Patient awake but pleasantly confused. She has refused some nursing care and refused to work with speech this am. Denies any pain, states sometimes short of breath. Appears in no distress. Family not present during this assessment. - Constitutional Vitals: Abnormal lab results RBC 3.19 M/mcL (3.82-4.97) L 10/30/16 05:10 Hgb 9.4 g/dL (11.5-15.4) L 10/30/16 05:10 Hct 27.6 % (35.3-44.9) L 10/30/16 05:10 RDW 15.1 % (11.5-14.5) H 10/30/16 05:10 Plt Count 75 K/mcL (140-400) L 10/30/16 05:10 Nucleated RBCs/100 WBC 0.7 /100 WBC (0) H 10/30/16 05:10 Immature Plt Fraction 7.3 % (1.1-6.1) H 10/30/16 05:10 PT 37.1 Seconds (9.4-12.1) H 10/30/16 05:10 APTT 153.7 Seconds (26.0-36.0) H* 10/29/16 09:10 Heparin Anti-Xa, Unfract 0.06 IU/mL (0.30-0.70) L 10/29/16 09:10 BUN 108 mg/dL (7-20) H 10/30/16 05:10 Creatinine 2.61 mg/dL (0.57-1.11) H 10/30/16 05:10 Est GFR ( Amer) 21 (> 60) L 10/30/16 05:10 Est GFR (Non-Af Amer) 17 (> 60) L 10/30/16 05:10 BUN/Creatinine Ratio 41 (6-26) H 10/30/16 05:10 Calculated Osmolality 331 (280-300) H 10/30/16 05:10 Phosphorus 6.7 mg/dL (2.3-4.7) H 10/28/16 04:40 Ferritin 373 ng/ml (5-204) H 10/30/16 09:50 AST 37 Units/L (5-34) H 10/30/16 05:10 Troponin I 0.09 ng/mL (0-0.03) H* 10/28/16 17:13 C-Reactive Protein 21 mg/L (Less than 5) H 10/28/16 04:40 B-Natriuretic Peptide 684 pg/mL (0-100) H 10/27/16 20:35 Serum Total Protein 5.8 g/dL (6.0-8.3) L D 10/30/16 05:10 Albumin 2.8 g/dL (3.5-5.0) L 10/30/16 05:10 Albumin/Globulin Ratio 0.9 (1.1-2.2) L 10/30/16 05:10 Lipase 168 Units/L (8-78) H 10/27/16 20:35 Vitamin B12 1542 pg/mL (213-816) H 10/28/16 09:10 Urine Clarity Cloudy (Clear) A 10/27/16 20:46 Urine Microscopic RBC 3-5 per hpf (0-3) H 10/27/16 20:46 Urine Microscopic WBC 3-5 per hpf (0-3) H 10/27/16 20:46 Ur Squamous Epith Cells Many per lpf (None-Few) H 10/27/16 20:46 Urine Total Protein 41 mg/dL (1-14) H 10/30/16 09:40 General appearance: Present: no acute distress - Respiratory Respiratory exam: Present: decreased breath sounds, CTAB - Cardiovascular Cardiovascular exam: Present: irregular rhythm - GI/Abdominal GI/Abdominal exam: Present: normal bowel sounds, soft - Additional comments: Urine light yellow with sediment in tubing. - Extremities Exam Additional comments: 3-4 + edema bilateral lower extremities. Generalized edema to bilateral upper extremities - Neurological Exam Neurological exam: Present: alert, altered Additional comments: Oriented to name only, becomes anxious with assessment or when attempting to follow commands. - Psychiatric Psychiatric exam: Present: anxious - Skin Skin exam: Present: dry, pallor, warm Palliative Quality Palliative Quality: Screen for Code Status: Yes, Screen for Goals of Care: Yes, Screen for Pain: Yes, If Pain Regimen Started, Initiate Bowel Regimen: NA, Screen for Nausea/Vomitting: Yes Code Status: 10/28/16 02:48 Resuscitation Status: Active [RES] Routine Comment: Resuscitation Status: Full Code 10/28/16 16:20 CODE [Resuscitation Status: Active] [RES] Routine Comment: Resuscitation Status: DNR-Comfort Care-Arrest 10/29/16 13:52 DNR [Resuscitation Status: Active] [RES] Routine Comment: Resuscitation Status: [id number] - Labs CBC & Chem 7: 10/30/16 05:10 10/30/16 05:10 Labs: Laboratory Results - last 24 hr 10/29/16 10/30/16 10/30/16 11:20 03:58 07:05 POC Glucose 70 76 Hepatitis A IgM Ab Hep Bs Antigen Hep B Core IgM Ab Hepatitis C Ab Screen Blood Type A POSITIVE Antibody Screen NEGATIVE Crossmatch See Detail 10/30/16 10/30/16 10/30/16 09:50 11:33 15:28 POC Glucose 70 63 Hepatitis A IgM Ab Nonreactive Hep Bs Antigen Nonreactive Hep B Core IgM Ab Nonreactive Hepatitis C Ab Screen Nonreactive Blood Type Antibody Screen Crossmatch - Impressions Impressions Chest CT 10/29/16 10:48 IMPRESSION: 1. Small left pleural effusion and moderate to large right pleural effusion, without evidence of hemothorax. 2. Coronary atherosclerosis. 3. Mild diffuse anasarca. D/ / 10/29/2016 13:08:44 Jose Brandon MD / [facility] Interpreting Provider: Jose Brandon MD - ABG Interpretation ABG results: PT/INR, D-dimer PT 37.1 Seconds (9.4-12.1) H 10/30/16 05:10 D-Dimer 283 ng/mLFEU (0-500) 10/29/16 09:10 Consult Discharge Plan - Plan Referrals: Laurent Conrad MD [Primary Care Provider] -
[2016-10-31] MEDS: rOPINIRole 1 MG TABLET PO SCH ×2 (15:23→19:11)
[2016-10-31] MEDS: Magic Mouthwash 10 ML UD Cup PO SCH (16:40)
[2016-10-31 17:52] LABS: INR 2.8; Prothrombin Time 30.6 Seconds (9.4-12.1)
--- NOTE | 2016-10-31 18:05 | Internal Med Progress Note ---
Date of Encounter: 10/31/16 Time of Encounter: 15:45 - Assessment and plan (1) Acute renal failure Current Visit: Yes Status: Acute Assessment and plan: Uncertain etiology-could be due to hypovolemic shock/malnutrition and hypoalbuminemia/cardiorenal syndrome. Noted to have improving serum creatinine. Nephrology on board. Qualifiers: Acute renal failure type: unspecified Qualified Code(s): N17.9 - Acute kidney failure, unspecified (2) Anasarca Current Visit: Yes Status: Chronic Assessment and plan: Could be due to hypoalbuminemia from malnutrition. Does not appear to be acute CHF or nephrotic syndrome. Hold off on diuretics at this time as patient appears to be volume depleted intravascularly. Continue gentle fluid hydration. (3) Anemia Current Visit: Yes Status: Acute Assessment and plan: Noted to have an acute drop in hemoglobin while in the ICU and received 2 units PRBC transfusion. Also had supratherapeutic INR at the time of admission with unclear etiology and received 6 units of fresh frozen plasma. Stool occult blood test was positive and there was a question of GI bleed. GI was consulted and planned EGD and colonoscopy, which had to be deferred due to elevated INR. Continue to monitor hemoglobin. Qualifiers: Anemia type: unspecified type Qualified Code(s): D64.9 - Anemia, unspecified (4) Coagulopathy Current Visit: Yes Status: Acute Assessment and plan: Uncertain etiology. PT/INR noted to be improving currently. (5) Constipation Current Visit: Yes Status: Chronic Qualifiers: Constipation type: slow transit constipation Qualified Code(s): K59.01 - Slow transit constipation (6) Failure to thrive Current Visit: Yes Status: Chronic Assessment and plan: Patient's family reports she has been having poor appetite along with persistent nausea and dry heaves for the last few months, which severely limited her oral intake and caused malnutrition and failure to thrive. Family understands the poor prognosis the patient is in at this time and is looking at hospice care if patient does not improve in the next couple of days. Patient failed bedside swallow evaluation while in the ICU. Repeat swallow evaluation done today recommends no solids and only honey thick liquids. Palliative care team on board, follow-up noted. Patient has been started on IV fluconazole for possible oral/esophageal thrush which could be limiting her oral intake, although this is less likely. Qualifiers: Failure to thrive age range: in adult Qualified Code(s): R62.7 - Adult failure to thrive (7) Pleural effusion Current Visit: Yes Status: Chronic (8) Atrial fibrillation Current Visit: Yes Status: Chronic Assessment and plan: Noted to be on long-term anticoagulation with Eliquis, which has been held since admission due to coagulopathy and planned EGD/Colonoscopy. Qualifiers: Atrial fibrillation type: chronic Qualified Code(s): I48.2 - Chronic atrial fibrillation (9) Hypothyroidism Current Visit: Yes Status: Chronic Qualifiers: Hypothyroidism type: unspecified Qualified Code(s): E03.9 - Hypothyroidism , unspecified - Subjective Interval history: Reports some throat discomfort but no chest pain, shortness of breath, palpitations; does have chronic leg swelling; - Constitutional Vitals: Temp Pulse Resp BP Pulse Ox 96.4 F L 96 18 99/58 92 L 10/31/16 06:00 10/31/16 06:00 10/31/16 06:00 10/31/16 06:00 10/31/16 06:00 General appearance: Present: A&O X 2 - Head Head exam: Present: atraumatic, normocephalic Additional comments: Mild erythema noted over oral and pharyngeal mucosa. No evidence of thrush/ whitish plaques or ulcers. - Neck Neck exam general surgery: Present: supple, trachea midline. Absent: lymphadenopathy - Respiratory Respiratory exam: Present: rales (failnt bibasal crackles+). Absent: accessory muscle use, rhonchi, wheezes - Cardiovascular Cardiovascular exam: Present: irregular rhythm, +S1, +S2. Absent: diastolic murmur, gallop, rubs, systolic murmur - GI/Abdominal GI/Abdominal exam: Present: normal bowel sounds, soft (obese), no peritoneal signs. Absent: distended, tenderness - Extremities Exam Extremities exam: Present: pedal edema (3+ pedal edema extending upto B/L hips) , warm, radial pulses palpable and symetrical. Absent: calf tenderness, cyanotic Additional comments: Right upper extremity-erythema extending from arm to its medial elbow and proximal forearm. Extended IV line removed recently. - Neurological Exam Neurological exam: Present: no focal deficits, strengths equal and symetr throughout (diffusely decreased in B/L LE). Absent: pronater drift, facial droop, speech deficit - Skin Skin exam: Present: dry, intact Internal Medicine: Result - Labs CBC & Chem 7: 11/01/16 04:10 11/01/16 04:10 - ABG Interpretation ABG results: PT/INR, D-dimer PT 30.6 Seconds (9.4-12.1) H 10/31/16 17:00 D-Dimer 283 ng/mLFEU (0-500) 10/29/16 09:10 - Impressions Impressions Chest CT 10/29/16 10:48 IMPRESSION: 1. Small left pleural effusion and moderate to large right pleural effusion, without evidence of hemothorax. 2. Coronary atherosclerosis. 3. Mild diffuse anasarca. D/ / 10/29/2016 13:08:44 Jose Brandon MD / [facility] Interpreting Provider: Jose Brandon MD Consult Discharge Plan - Plan Referrals: Laurent Conrad MD [Primary Care Provider] -
[2016-11-01 04:21] LABS: Immature Granulocytes % 2.1 % (0-4); Red Cell Distribution Width 16.4 % (11.5-14.5)
[2016-11-01 04:23] LABS: Eosinophils # 0.1 K/mcL (0.0-0.6); Eosinophils % 1.3 %; Hematocrit 22.4 % (35.3-44.9); Hemoglobin 7.2 g/dL (11.5-15.4); Immature Platelets 8.2 % (1.1-6.1); Lymphocytes % 18.9 %; Mean Corpuscular HGB Conc 32.1 g/dL (31.6-35.5); Mean Corpuscular Hemoglobin 29.4 pg (28.0-33.3); Mean Corpuscular Volume 91.4 fL (83.0-100.0); Mean Platelet Volume 11.5 fL (9.4-12.4); Monocytes # 0.6 K/mcL (0.0-1.3); Monocytes % 10.9 %; Neutrophils # 3.5 K/mcL (1.6-8.9); Nucleated Red Blood Cells 1.9 /100 WBC (0); Red Blood Count 2.45 M/mcL (3.82-4.97); Segmented Neutrophils % 66.8 %
[2016-11-01 04:25] LABS: INR 2.6; Platelet Count 68 K/mcL (140-400); Prothrombin Time 29.2 Seconds (9.4-12.1)
[2016-11-01 04:51] LABS: Albumin 2.4 g/dL (3.5-5.0); Albumin/Globulin Ratio 0.9 (1.1-2.2); Bilirubin,Total 0.7 mg/dL (0.2-1.2); Calcium 8.5 mg/dL (8.6-10.8); Globulin 2.6 g/dL (2.4-3.5); Potassium 3.9 mEq/L (3.5-4.5)
[2016-11-01] MEDS ORDERED: 0.9 % Sodium Chloride 250 ML IVC ONE (08:09)
[2016-11-01] MEDS ORDERED: Fluconazole 100 MG/50 ML 100 MG/50 ML BAG IVPB SCH (09:00)
--- NOTE | 2016-11-01 09:43 | Palliative Progress Note ---
Date of Encounter: 11/01/16 Time of Encounter: 08:05 - Assessment and plan (1) Acute renal failure Current Visit: Yes Status: Acute Assessment and plan: Labs are trending slightly better. Continue current plan per hospitalist team. Patient was given a fluid bolus this morning secondary to low blood pressure. The patient is making urine. Qualifiers: Acute renal failure type: unspecified Qualified Code(s): N17.9 - Acute kidney failure, unspecified (2) Constipation Current Visit: Yes Status: Acute Assessment and plan: No BM noted, will place on bowel regimen. Qualifiers: Constipation type: unspecified constipation type Qualified Code(s): K59.00 - Constipation, unspecified (3) Counseling regarding advanced care planning and goals of care Current Visit: Yes Status: Acute Assessment and plan: Status DNR CCA DNI. Family wishes the patient to be treated for thrush and see if she can improve oral intake through speech therapy. Only does not desire any kind of artificial feeding. Transition back to ECF will probably consider hospice care. Patient is actively having more hypotension at this time and was hypoglycemic this morning. Overall prognosis appears poor. (4) Hypotension Current Visit: Yes Status: Acute Assessment and plan: Given fluid bolus this morning, did note that the patient has had a 2 g drop in hemoglobin since yesterday. Qualifiers: Hypotension type: idiopathic hypotension Qualified Code(s): I95.0 - Idiopathic hypotension (5) Thrush, oral Current Visit: Yes Status: Acute Assessment and plan: Appears to be clearing slowly. Few lesions visible this morning. (6) Nausea Current Visit: Yes Status: Resolved Assessment and plan: Appears to be under control at this time. Continue current medications. - Time Spent With Patient Total time spent is greater than 50% in coordination of care (as documented) at patient's floor/unit and/or counseling patient: - Subjective Interval history: Poorly responsive to verbal this morning. Patient's blood pressure is low, as well as blood sugar only 50. Patient was also refusing to eat. He did not complain of anything to me. sHe was given an amp of D50, and a fluid bolus. - Constitutional Vitals: Abnormal lab results RBC 2.45 M/mcL (3.82-4.97) L 11/01/16 04:10 Hgb 7.2 g/dL (11.5-15.4) L D 11/01/16 04:10 Hct 22.4 % (35.3-44.9) L 11/01/16 04:10 RDW 16.4 % (11.5-14.5) H 11/01/16 04:10 Plt Count 68 K/mcL (140-400) L 11/01/16 04:10 Nucleated RBCs/100 WBC 1.9 /100 WBC (0) H 11/01/16 04:10 Immature Plt Fraction 8.2 % (1.1-6.1) H 11/01/16 04:10 PT 29.2 Seconds (9.4-12.1) H 11/01/16 04:10 APTT 153.7 Seconds (26.0-36.0) H* 10/29/16 09:10 Heparin Anti-Xa, Unfract 0.06 IU/mL (0.30-0.70) L 10/29/16 09:10 Sodium 149 mEq/L (136-145) H 11/01/16 04:10 Chloride 114 mEq/L (98-109) H 11/01/16 04:10 BUN 123 mg/dL (7-20) H 11/01/16 04:10 Creatinine 2.50 mg/dL (0.57-1.11) H 11/01/16 04:10 Est GFR ( Amer) 22 (> 60) L 11/01/16 04:10 Est GFR (Non-Af Amer) 18 (> 60) L 11/01/16 04:10 BUN/Creatinine Ratio 49 (6-26) H 11/01/16 04:10 Glucose 62 mg/dL (70-99) L 11/01/16 04:10 Calculated Osmolality 345 (280-300) H 11/01/16 04:10 Calcium 8.5 mg/dL (8.6-10.8) L 11/01/16 04:10 Phosphorus 6.7 mg/dL (2.3-4.7) H 10/28/16 04:40 Ferritin 373 ng/ml (5-204) H 10/30/16 09:50 AST 35 Units/L (5-34) H 11/01/16 04:10 Troponin I 0.09 ng/mL (0-0.03) H* 10/28/16 17:13 C-Reactive Protein 21 mg/L (Less than 5) H 10/28/16 04:40 B-Natriuretic Peptide 684 pg/mL (0-100) H 10/27/16 20:35 Serum Total Protein 5.0 g/dL (6.0-8.3) L 11/01/16 04:10 Albumin 2.4 g/dL (3.5-5.0) L 11/01/16 04:10 Albumin/Globulin Ratio 0.9 (1.1-2.2) L 11/01/16 04:10 Lipase 168 Units/L (8-78) H 10/27/16 20:35 Vitamin B12 1542 pg/mL (213-816) H 10/28/16 09:10 Urine Clarity Cloudy (Clear) A 10/27/16 20:46 Urine Microscopic RBC 3-5 per hpf (0-3) H 10/27/16 20:46 Urine Microscopic WBC 3-5 per hpf (0-3) H 10/27/16 20:46 Ur Squamous Epith Cells Many per lpf (None-Few) H 10/27/16 20:46 Urine Total Protein 41 mg/dL (1-14) H 10/30/16 09:40 General appearance: Present: no acute distress - Head Head exam: Present: atraumatic, normal inspection - Eye Eye exam: Present: normal appearance Palliative Quality Palliative Quality: Screen for Code Status: Yes, Screen for Goals of Care: Yes, Screen for Pain: Yes, If Pain Regimen Started, Initiate Bowel Regimen: NA, Screen for Nausea/Vomitting: Yes Code Status: 10/28/16 02:48 Resuscitation Status: Active [RES] Routine Comment: Resuscitation Status: Full Code 10/28/16 16:20 CODE [Resuscitation Status: Active] [RES] Routine Comment: Resuscitation Status: DNR-Comfort Care-Arrest 10/29/16 13:52 DNR [Resuscitation Status: Active] [RES] Routine Comment: Resuscitation Status: [id number] - Labs CBC & Chem 7: 11/01/16 04:10 11/01/16 04:10 Labs: Laboratory Results - last 24 hr 10/30/16 10/31/16 11/01/16 09:50 17:00 04:10 WBC 5.3 RBC 2.45 L Hgb 7.2 L D Hct 22.4 L MCV 91.4 MCH 29.4 MCHC 32.1 RDW 16.4 H Plt Count 68 L MPV 11.5 Immature Gran % 2.1 Seg Neutrophils % 66.8 Lymphocytes % 18.9 Monocytes % 10.9 Eosinophils % 1.3 Basophils % 0.0 Neutrophils # 3.5 Lymphocytes # 1.0 Monocytes # 0.6 Eosinophils # 0.1 Basophils # 0.0 Nucleated RBCs/100 WBC 1.9 H Immature Plt Fraction 8.2 H PT 30.6 H INR 2.8 Sodium Potassium Chloride Carbon Dioxide BUN Creatinine Est GFR ( Amer) Est GFR (Non-Af Amer) BUN/Creatinine Ratio Glucose Calculated Osmolality Calcium Total Bilirubin AST ALT Alkaline Phosphatase Serum Total Protein Albumin Globulin Albumin/Globulin Ratio Hepatitis A IgM Ab Nonreactive Hep Bs Antigen Nonreactive Hep B Core IgM Ab Nonreactive Hepatitis C Ab Screen Nonreactive 11/01/16 11/01/16 04:10 04:10 WBC RBC Hgb Hct MCV MCH MCHC RDW Plt Count MPV Immature Gran % Seg Neutrophils % Lymphocytes % Monocytes % Eosinophils % Basophils % Neutrophils # Lymphocytes # Monocytes # Eosinophils # Basophils # Nucleated RBCs/100 WBC Immature Plt Fraction PT 29.2 H INR 2.6 Sodium 149 H Potassium 3.9 Chloride 114 H Carbon Dioxide 21 BUN 123 H Creatinine 2.50 H Est GFR ( Amer) 22 L Est GFR (Non-Af Amer) 18 L BUN/Creatinine Ratio 49 H Glucose 62 L Calculated Osmolality 345 H Calcium 8.5 L Total Bilirubin 0.7 AST 35 H ALT 24 Alkaline Phosphatase 72 Serum Total Protein 5.0 L Albumin 2.4 L Globulin 2.6 Albumin/Globulin Ratio 0.9 L Hepatitis A IgM Ab Hep Bs Antigen Hep B Core IgM Ab Hepatitis C Ab Screen - ABG Interpretation ABG results: PT/INR, D-dimer PT 29.2 Seconds (9.4-12.1) H 11/01/16 04:10 D-Dimer 283 ng/mLFEU (0-500) 10/29/16 09:10 Consult Discharge Plan - Plan Referrals: Laurent Conrad MD [Primary Care Provider] -
--- NOTE | 2016-11-01 10:16 | Nephrology Progress Note ---
Date of Encounter: 11/01/16 Time of Encounter: 09:55 - Assessment and Plan (1) Acute renal failure Current Visit: Yes Status: Acute NIYA in setting hypotension and volume depletion. Renal fct slowly improving. Urine output 1500cc. Palliative car input appreciated. Will always have edema. Continue to monitor. Qualifiers: Acute renal failure type: unspecified Qualified Code(s): N17.9 - Acute kidney failure, unspecified Subjective Principal diagnosis: Hypovolemic shock Interval history: Sleeping. Arouses when name called. Non verbal. Objective - Vital Signs Vital signs: Vital Signs Temp Pulse Resp BP Pulse Ox 11/01/16 08:05 94.5 F L 99 18 74/47 90 L 11/01/16 04:18 95.4 F L 82 19 96/63 10/31/16 23:55 95.9 F L 87 26 106/74 95 10/31/16 23:27 73/39 10/31/16 20:10 95.1 F L 96 14 92/52 96 Intake and Output 10/31/16 11/01/16 11/01/16 23:59 07:59 15:59 Output Total 550 / 550 75 / 75 Balance -550 / -550 -75 / -75 Output: Urine 75 / 75 Catheter 550 / 550 Other: Blood Glucose* 97 - General Appearance General appearance: Present: well-developed, well-nourished, appears started age EENT: Present: mucous membranes moist Neck: Present: no JVD Respiratory: Present: clear Cardiology: Present: regular rate, regular rhythm Additional Comments: 2-3+ pitting LE Gastrointestinal: Present: normoactive bowel sounds, no tenderness Integumentary: Present: warm and dry Psychiatric: Present: mood/affect appropriate - Lab 11/01/16 04:10 11/01/16 04:10 Most recent lab results Calcium 8.5 mg/dL (8.6-10.8) L 11/01/16 04:10 Phosphorus 6.7 mg/dL (2.3-4.7) H 10/28/16 04:40 Magnesium 2.0 mg/dL (1.6-2.6) 10/28/16 04:40 Urine Total Protein 41 mg/dL (1-14) H 10/30/16 09:40 Consult Discharge Plan - Plan Referrals: Laurent Conrad MD [Primary Care Provider] -
[2016-11-01] MEDS: Pantoprazole 40 MG VIAL IVP SCH (10:21)
[2016-11-01] MEDS: Levothyroxine Sodium 100 MCG VIAL IVP SCH (10:31)
[2016-11-01] MEDS: Magic Mouthwash 10 ML UD Cup PO SCH ×3 (10:42→18:26)
[2016-11-01] MEDS: Nystatin SUSP 5 ML UD.LIQ BC SCH ×3 (10:42→18:26)
[2016-11-01 15:19] VITALS: BP 70/57
--- NOTE | 2016-11-01 17:58 | Discharge Summary ---
Date of Encounter: 11/01/16 Time of Encounter: 16:30 - Discharge Diagnosis (1) Acute renal failure Priority: Primary Status: Acute Qualifiers: Acute renal failure type: unspecified Qualified Code(s): N17.9 - Acute kidney failure, unspecified (2) Anasarca Priority: Primary Status: Chronic (3) Anemia Priority: Primary Status: Acute Qualifiers: Anemia type: unspecified type Qualified Code(s): D64.9 - Anemia, unspecified (4) Coagulopathy Priority: Primary Status: Acute (5) Constipation Priority: Secondary Status: Chronic Qualifiers: Constipation type: slow transit constipation Qualified Code(s): K59.01 - Slow transit constipation (6) Failure to thrive Priority: Primary Status: Chronic Qualifiers: Failure to thrive age range: in adult Qualified Code(s): R62.7 - Adult failure to thrive (7) Pleural effusion Priority: Primary Status: Chronic (8) Atrial fibrillation Priority: Secondary Status: Chronic Qualifiers: Atrial fibrillation type: chronic Qualified Code(s): I48.2 - Chronic atrial fibrillation (9) Hypothyroidism Priority: Secondary Status: Chronic Qualifiers: Hypothyroidism type: unspecified Qualified Code(s): E03.9 - Hypothyroidism , unspecified - Discharge Medications Prescriptions: Morphine Oral CONC [Roxanol] 20 mg PO Q4HR PRN 10 Days PRN Reason: Pain Docusate [Colace] 100 mg PO BID #20 capsule LORazepam Oral Conc [Ativan Oral Conc] 2 mg PO Q2H PRN 10 Days PRN Reason: ANXIETY/AGITATION Home Medications: Levothyroxine [Synthroid] 150 mcg PO DAILY 03/30/16 [History] Docusate [Colace] 100 mg PO BID #20 capsule 11/01/16 [Rx] LORazepam Oral Conc [Ativan Oral Conc] 2 mg PO Q2H PRN 10 Days 11/01/16 [Rx] Morphine Oral CONC [Roxanol] 20 mg PO Q4HR PRN 10 Days 11/01/16 [Rx] Allergies/Adverse Reactions: Allergies Iodinated Contrast Media - Oral and [Iodinated Contrast Media - IV Dye] Adverse Reaction (Verified 10/27/16 20:13) Vomiting Date of admission: 10/28/16 02:14 Primary care physician: Laurent Conrad, Consults: 10/28/16 05:31 Consult to Nephrology [CONS] Routine Consulting Provider: [facility] Reason for Consult: Acute renal failure Call Completed: No Consult to Pulmonology [CONS] Routine Consulting Provider: Pulm Crit [facility]aina Reason for Consult: Hypotension - unknown cause Call Completed: No 10/28/16 16:23 Consult to Sat Instructor [CONS] Routine Reason for SW Consult: Placement back at [facility] 10/28/16 18:59 Consult to Cardiology [CONS] Routine Comment: Consulting Provider: Cardiology Naina Reason for Consult: Hypotension requiring vasopressors. Anasarca possibly 2/ 2 heart failure. Afib. Elevated trops. Call Completed: No 10/29/16 10:51 Consult to Palliative Care [CONS] Routine Comment: Consulting Provider: Palliative Care Naina 10/29/16 10:52 Consult to Gastroenterology [CONS] Stat Consulting Provider: Gastroenterology Naina Reason for Consult: possible GI bleed in the setting of hypovolemic shock Call Completed: No 10/29/16 16:58 consult to yeast cake cutter [Consult to Nutrition] [CONS] Routine Comment: severe malnutrition. Consulting Provider: NUTRITION Reason for Dietary Consult: Supplemental Nutrition 10/30/16 08:05 Consult to Speech Therapy [CONS] Routine Comment: Evaluate, develop and implement POC Reason for Consult: swallow eval Call Completed: No Discharging clinician: Emily Ling Anticipated date of discharge: 11/01/16 - Patient Status Disposition: Hospice - [facility] Condition: Critical Functional capacity at discharge: bed bound Overall status at discharge: patient is not back to baseline - Discharge Instructions Follow Up With: Laurent Conrad MD [Primary Care Provider] - Additional Instructions: Follow-up with hospice at [facility]. - Diet and Activity Diet: other (Honey thick liquids as tolerated) Hospital course: Ms. Linton is a 89 year old female with the above medical problems, who was initially admitted from shelter with complaints of persistent nausea, vomiting and peripheral edema. CT abdomen/pelvis done in the emergency room showed moderate bilateral leading pleural effusions along with lower lobe atelectasis, anasarca. Patient was noted to be in shock in the emergency room, not responding to IV fluids. She was started on IV dopamine infusion and was admitted to ICU. Multiple imaging studies and extensive workup was done and patient was noted to be in acute renal failure with uncertain etiology. Cardiac workup was done but echocardiogram showed no evidence of acute CHF. Cardiorenal syndrome was initially considered but this seemed less likely as she had no evidence of CHF. Cardiology and nephrology was consulted and followed patient in the ICU. Patient's renal function gradually stabilized and her blood pressure improved and she no longer required vasopressor support. However, she continued to have severe nausea with solid foods. She initially failed swallow evaluation and has been kept nothing by mouth. Repeat swallow evaluation cleared her to eat only honey thick liquids as she was gagging on any kind of solids including pureed foods. Patient did fairly well on the first day of transfer to the floor. However, on the second day she was noted to be extremely lethargic, poorly communicative even to family members, noted to have hypotension. Labs showed worsening renal function along with anemia. Patient's family has been considering hospice care and palliative care has been involved since the patient's ICU stay. After discussing patient's current clinical condition, family feels that the patient has been through enough and we have tried everything to revive her, however she does not respond to treatment. They chose for the patient to be transferred back to long term facility under hospice care at this time. - Time Spent with Patient Total time spent providing and/or coordinating discharge services: Greater than 30 minutes (50 min) - Constitutional Vitals: Temp Pulse Resp BP Pulse Ox 94.5 F L 101 20 70/57 87 L 11/01/16 15:16 11/01/16 15:16 11/01/16 15:16 11/01/16 15:16 11/01/16 15:16 General appearance: Present: A&O X 0 (Eyes open but no meaningful eye contact, noncommunicative, lethargic) - Respiratory Respiratory exam: Present: CTAB (Anterolaterally). Absent: accessory muscle use , rales, rhonchi, wheezes - Cardiovascular Cardiovascular exam: Present: RRR, +S1, +S2. Absent: diastolic murmur, gallop, rubs, systolic murmur
--- NOTE | 2016-11-01 18:02 | Physician Discharge Referral ---
ExtendedCare Referral Info Transfer To: [facility] Provider in Charge: Emily Ling Provider in Charge after Transfer: PCP, Other (Hospice) Institutional Level of Care: Skilled - Diagnosis (1) Acute renal failure Priority: Primary Status: Acute (2) Anasarca Priority: Primary Status: Chronic (3) Anemia Priority: Primary Status: Acute (4) Coagulopathy Priority: Primary Status: Acute (5) Constipation Priority: Secondary Status: Chronic (6) Failure to thrive Priority: Primary Status: Chronic (7) Pleural effusion Priority: Primary Status: Chronic (8) Atrial fibrillation Priority: Secondary Status: Chronic (9) Hypothyroidism Priority: Secondary Status: Chronic Expected Duration of Placement: 2 weeks Prognosis: Poor Aware of Diagnosis: Family Aware of Prognosis: Family - Transfer Medications Prescriptions: Morphine Oral CONC [Roxanol] 20 mg PO Q4HR PRN 10 Days PRN Reason: Pain Docusate [Colace] 100 mg PO BID #20 capsule LORazepam Oral Conc [Ativan Oral Conc] 2 mg PO Q2H PRN 10 Days PRN Reason: ANXIETY/AGITATION Home Medications: Levothyroxine [Synthroid] 150 mcg PO DAILY 03/30/16 [History] Docusate [Colace] 100 mg PO BID #20 capsule 11/01/16 [Rx] LORazepam Oral Conc [Ativan Oral Conc] 2 mg PO Q2H PRN 10 Days 11/01/16 [Rx] Morphine Oral CONC [Roxanol] 20 mg PO Q4HR PRN 10 Days 11/01/16 [Rx] Allergies/Adverse Reactions: Allergies Iodinated Contrast Media - Oral and [Iodinated Contrast Media - IV Dye] Adverse Reaction (Verified 10/27/16 20:13) Vomiting - Respiratory Orders Oxygen / L per min (2L/min) Smoking Cessation: Smoking cessation has been advised. For more information, call the [place] Tobacco Quit Line at 8-398-XFRJ-NOW. - Ancillary Orders May use pressure relief devices daily prn - Advance Directives Power of Assistant Professor Of Religion: Yes (Daughters and son) Code Status: DNR-Arrest/Don't Intubate - Mobility Orders Bedrest - Rehabiliation Orders Rehab Potential: Poor - Diet Orders Cardiac (honey-thick liquids as tolerated) CERTIFICATION: I certify that the transfer of the above named patient to an Extended Care Facility is necessary for the continuing treatment of the diagnosis listed. The above information is true and accurate reflection of patient's current condition. Confidential - Redisclosure prohibited without a patient's written consent.
[2016-11-02 07:53] LABS: AFP Tumor Marker Non-Pregnant 2 ng/mL (0-9)
[2016-11-02 10:45] LABS: ANA IgG by ELISA NONE DETECTED (None Detected); Ceruloplasmin 19 mg/dL (17-54); F-Actin (sm muscle) Ab IgG 10 Units (0-19)
[2016-11-05 20:31] LABS: A1A SZ Specimen WHOLE BLOOD; Alpha-1-Antitrypsin S Allele NEGATIVE; Alpha-1-Antitrypsin Z Allele NEGATIVE
[2016-11-06 07:57] LABS: Alpha-1-Antitrypsin 160 mg/dL (90-200)
== END 2016-11-01 19:40 | disposition hospice, inpatient (51) | DRG 682 ==
LOC: EMEROO 19:48 → ICNU 10-28 02:14 → SUATTDRO 10-28 02:14 → ICNU 10-28 02:30 → 3NENU 10-30 18:32
PROVIDERS: ADMIT Internal Medicine; ATTEND Internal Medicine